=== PATIENT | male | born 1950 | race Caucasian/White ===

== ENCOUNTER 2017-02-12 14:39 | Day surgery (SDC) | payer MEDICARE ==
[~2017-02-12] VITALS: Ht 172.7 cm; Wt 110.7 kg
[~2017-02-12 14:39] MED LIST: ASPI-586 PO; FISH OIL OMEGA1 EAC1 PO; FISH1CAP15 PO; HYDR-3730 PO; HYDR-707 PO; LISI1TAB6 PO; LISI1TAB8 PO; LOVA10TA PO; LOVA20TA2 PO; METO-270 PO; SIMV20TA3 PO
[2017-02-12 14:56] LABS: BASOPHILS % (AUTO) 0 % (0-10); EOSINOPHILS # (AUTO) 0.1 10^3/uL (0.0-0.3); EOSINOPHILS % (AUTO) 1 % (0-10); LYMPHOCYTES # (AUTO) 3.3 X 10^3 (1.0-4.0); LYMPHOCYTES % (AUTO) 31 % (12-44); MEAN CORPUSCULAR HEMOGLOBIN 32 PG (25-34); MEAN CORPUSCULAR HGB CONC 35 G/DL (32-36); MEAN CORPUSCULAR VOLUME 91 FL (80-99); MEAN PLATELET VOLUME 10.2 FL (7.4-10.4); MONOCYTES # (AUTO) 0.7 X 10^3 (0.0-1.0); MONOCYTES % (AUTO) 6 % (0-12); NEUTROPHILS # (AUTO) 6.5 X 10^3 (1.8-7.8); NEUTROPHILS % (AUTO) 61 % (42-75); PLATELET COUNT 293 10^3/uL (130-400); RED BLOOD COUNT 4.94 10^6/uL (4.35-5.85); RED CELL DISTRIBUTION WIDTH 13.5 % (10.0-14.5); WHITE BLOOD COUNT 10.6 10^3/uL (4.3-11.0)
--- NOTE | 2017-02-12 14:58 | ED Abdominal Pain ---
General Chief Complaint: Abdominal/GI Problems Stated Complaint: LOWER RIGHT SIDE PAIN Source of Information: Patient Exam Limitations: No Limitations History of Present Illness Time Seen By Provider: 14:57 Initial Comments To ER with pain to the right lower quadrant of the abdomen. This began 2 days ago mild. Became more intense yesterday and even more intense today. No nausea or vomiting. No troubles urinating and no changes in bowel habits. He is still passing gas without difficulty. He still has specifically, still has his appendix. No fevers or chills. No history of this. Timing/Duration: 2-3 Days Severity/Quality: Moderate Location: RLQ Radiation: No Radiation Activities at Onset: None Associated Symptoms: No Fever/Chills, No Nausea/Vomiting Allergies and Home Medications Allergies Coded Allergies: Penicillins (Unverified Allergy, Unknown, 09/24/10) Home Medications Aspirin 81 Mg Tablet.dr, 81 MG PO DAILY, (Reported) Hydrocodone/Acetaminophen 1 Each Tablet, 1-2 EACH PO Q6H, #35 Prescribed by: SARAH JOSÉ on 01/11/16 1053 Lisinopril/Hydrochlorothiazide 1 Each Tablet, 1 EACH PO DAILY, (Reported) Lovastatin 20 Mg Tablet, 20 MG PO HS, (Reported) Metoprolol Succinate 25 Mg Tab.er.24h, 25 MG PO DAILY, (Reported) [place]-3/Dha/Epa/Fish Oil 1 Each Capsule.dr, 1 EACH PO HS, (Reported) Review of Systems Constitutional: see HPI EENTM: No Symptoms Reported Respiratory: No Symptoms Reported Cardiovascular: No Symptoms Reported Gastrointestinal: See HPI, Abdominal Pain, Denies Constipated, Denies Diarrhea , Denies Nausea Genitourinary: No Symptoms Reported Musculoskeletal: no symptoms reported Skin: no symptoms reported Psychiatric/Neurological: No Symptoms Reported Endocrine: No Symptoms Reported Hematologic/Lymphatic: No Symptoms Reported Past Csbyjes-Volsfa-Lksfyb Hx Patient Social History Former Smoker/When Quit: Jan 11, 1987 Recent Foreign Travel: No Contact w/Someone Who Travel: No Immunizations Up To Date Date of Pneumonia Vaccine: Sep 13, 2013 Surgeries HX Surgeries: Yes (right rotator cuff, umb hernia, bilat hip and knee replacement) Respiratory Hx Respiratory Disorders: No Cardiovascular Hx Cardiac Disorders: Yes Neurological Hx Neurological Disorders: Yes (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) Reproductive System Hx Reproductive Disorders: No Sexually Transmitted Disease: No Genitourinary Hx Genitourinary Disorders: No Gastrointestinal Hx Gastrointestinal Disorders: No Musculoskeletal Hx Musculoskeletal Disorders: Yes (AVASCULAR Necorosis of hip) Musculoskeletal Disorders: Arthritis Endocrine Hx Endocrine Disorders: No HEENT HX ENT Disorders: Yes Loss of Vision: Right Cancer Hx Cancer: No Psychosocial Hx Psychiatric Problems: No Integumentary HX Skin/Integumentary Disorder: No Blood Transfusions Hx Blood Disorders: No Physical Exam Vital Signs VS - Last 72 Hours, by Label 02/12/17 14:40 Temp 97.5 Pulse 72 Resp 18 B/P (MAP) 136/60 Pulse Ox 96 Capillary Refill : General Appearance: WD/WN, no apparent distress HEENT: PERRL/EOMI, normal ENT inspection Neck: non-tender, full range of motion Respiratory: normal breath sounds, no respiratory distress, no accessory muscle use Cardiovascular: regular rate, rhythm, no murmur Gastrointestinal: normal bowel sounds, soft, tenderness (right lower quadrant) Extremities: normal range of motion, non-tender Neurologic/Psychiatric: alert, normal mood/affect, oriented x 3 Skin: normal color, warm/dry Progress/Results/Core Measures Results/Orders Lab Results Laboratory Tests Test 02/12/17 14:45 Range/Units White Blood Count 10.6 4.3-11.0 10^3/uL Red Blood Count 4.94 4.35-5.85 10^6/uL Hemoglobin 15.6 13.3-17.7 G/DL Hematocrit 45 40-54 % Mean Corpuscular Volume 91 80-99 FL Mean Corpuscular Hemoglobin 32 25-34 PG Mean Corpuscular Hemoglobin Concent 35 32-36 G/DL Red Cell Distribution Width 13.5 10.0-14.5 % Platelet Count 293 130-400 10^3/uL Mean Platelet Volume 10.2 7.4-10.4 FL Neutrophils (%) (Auto) 61 42-75 % Lymphocytes (%) (Auto) 31 12-44 % Monocytes (%) (Auto) 6 0-12 % Eosinophils (%) (Auto) 1 0-10 % Basophils (%) (Auto) 0 0-10 % Neutrophils # (Auto) 6.5 1.8-7.8 X 10^3 Lymphocytes # (Auto) 3.3 1.0-4.0 X 10^3 Monocytes # (Auto) 0.7 0.0-1.0 X 10^3 Eosinophils # (Auto) 0.1 0.0-0.3 10^3/uL Basophils # (Auto) 0.0 0.0-0.1 10^3/uL Sodium Level 138 135-145 MMOL/L Potassium Level 3.8 3.6-5.0 MMOL/L Chloride Level 103 98-107 MMOL/L Carbon Dioxide Level 28 21-32 MMOL/L Anion Gap 7 5-14 MMOL/L Blood Urea Nitrogen 13 7-18 MG/DL Creatinine 0.81 0.60-1.30 MG/DL Estimat Glomerular Filtration Rate > 60 BUN/Creatinine Ratio 16 Glucose Level 176 H 70-105 MG/DL Calcium Level 9.6 8.5-10.1 MG/DL Total Bilirubin 1.0 0.1-1.0 MG/DL Aspartate Amino Transf (AST/SGOT) 18 5-34 U/L Alanine Aminotransferase (ALT/SGPT) 22 0-55 U/L Alkaline Phosphatase 89 40-136 U/L Total Protein 7.2 6.4-8.2 G/DL Albumin 4.2 3.2-4.5 G/DL My Orders Orders - TAMEKA ROBERTS APRN Cbc With Automated Diff (02/12/17 14:51) Comprehensive Metabolic Panel (02/12/17 14:51) Ua Culture If Indicated (02/12/17 14:51) Saline Lock/Iv-Start (02/12/17 14:51) Ct Abd/Pelv W (Appendicitis) (02/12/17 14:51) Iohexol Injection (Omnipaque 350 Mg/Ml 1 (02/12/17 15:15) Sodium Chloride Flush (Catheter Flush Sy (02/12/17 15:15) Ns (Ivpb) (Sodium Chloride 0.9% Ivpb Bag (02/12/17 15:15) Ketorolac Injection (Toradol Injection) (02/12/17 16:00) Medications Given in ED Current Medications Medications Dose Ordered Sig/Anthony Route Start Time Stop Time Status Last Admin Dose Admin Iohexol 100 ml ONCE ONCE IV 02/12/17 15:15 02/12/17 15:17 DC 02/12/17 15:31 100 ML Ketorolac Tromethamine 30 mg ONCE ONCE IVP 02/12/17 16:00 02/12/17 16:01 02/12/17 15:51 30 MG Sodium Chloride 10 ml NEEDED PRN IV 02/12/17 15:15 02/12/17 15:31 10 ML Sodium Chloride 100 ml ONCE ONCE IV 02/12/17 15:15 02/12/17 15:17 DC 02/12/17 15:31 80 ML Vital Signs/I&O Vital Sign - Last 12Hours 02/12/17 14:40 Temp 97.5 Pulse 72 Resp 18 B/P (MAP) 136/60 Pulse Ox 96 Diagnostic Imaging Diagonstic Imaging: CT Comments NAME: KATIANA PETERS REC#: [id number] PT STATUS: REG ER : 1950 PHYSICIAN: TAMEKA ROBERTS APRN ADMIT DATE: 02/12/17/ER Draft Date of Exam:02/12/17 CT ABD/PELV W (APPENDICITIS) PROCEDURE: CT abdomen and pelvis with contrast, rule out appendicitis. TECHNIQUE: Multiple contiguous axial images were obtained through the abdomen and pelvis after the administration of intravenous contrast. INDICATION: Right lower quadrant pain. History of hernia repairs. 100 mL of Omnipaque 350 is administered intravenously. FINDINGS: The lung bases demonstrate no significant abnormality. The liver, the gallbladder, the pancreas, and the adrenal glands appear unremarkable. The kidneys have symmetric enhancement and contrast excretion. There is no hydronephrosis. The abdominal aorta is normal in caliber. No periaortic significantly enlarged lymph node is seen. There is no bowel obstruction. The appendix is dilated with mild surrounding fatty stranding concerning for early acute appendicitis. No abscess or evidence of perforation. No significant free fluid or fluid collection of the abdomen or pelvis is seen. The pelvis demonstrate beam hardening artifacts from bilateral hip replacements. There is diastases of the recti and wide neck small periumbilical hernia. The osseous structures demonstrate fused SI joints and degenerative changes in the lumbar spine. IMPRESSION: Findings concerning for early appendicitis. Findings discussed with VIRIDIANA Pierson, at time of dictation. Dictated on workstation # [id number] Dict: 02/12/17 1548 Trans: 02/12/17 1606 [id number] Interpreted by: JEAN-PAUL GAYLE MD Electronically signed by: Departure Communication Time/Spoke to Admitting Phy: 15:59 Communication I did discuss the case with Dr. José. He recommends admit, nothing by mouth, pain and nausea medication and tentative plan for laparoscopic appendectomy tomorrow morning. The patient did eat a bowl of Ramen noodles at about 2 p.m. Impression Impression: Primary Impression: Acute appendicitis Qualified Codes: K35.3 - Acute appendicitis with localized peritonitis Disposition: ADMITTED INPATIENT Condition: Stable Decision to Admit Reason: Admit from ER (General) Decision to Admit/Date: Feb 12, 2017 Time/Decision to Admit Time: 15:53 Departure-Patient Inst. Referrals: [facility] (PCP/Family) Primary Care Physician TAMEKA ROBERTS APRN Feb 12, 2017 14:58
[2017-02-12] MEDS ORDERED: CATHETER FLUSH 10 ML SYR IV PRN ×2 (15:15→16:45)
[2017-02-12] MEDS ORDERED: NS 100 ML (IVPB) BAG IV ONE (15:15)
[2017-02-12] MEDS ORDERED: IOHEXOL 350 MG/ML 100 ML (OMNIPAQUE 350) VIAL IV ONE (15:15)
[2017-02-12 15:16] LABS: ALANINE AMINOTRANSFERASE 22 U/L (0-55); ALBUMIN 4.2 G/DL (3.2-4.5); ANION GAP 7 MMOL/L (5-14); ASPARTATE AMINO TRANSFERASE 18 U/L (5-34); BLOOD UREA NITROGEN 13 MG/DL (7-18); BUN/CREATININE RATIO 16; CALCIUM 9.6 MG/DL (8.5-10.1); CARBON DIOXIDE 28 MMOL/L (21-32); CHLORIDE 103 MMOL/L (98-107); CREATININE SERUM 0.81 MG/DL (0.60-1.30); GFR ESTIMATED > 60; GLUCOSE 176 MG/DL (70-105); POTASSIUM 3.8 MMOL/L (3.6-5.0); SODIUM 138 MMOL/L (135-145); TOTAL PROTEIN 7.2 G/DL (6.4-8.2)
[2017-02-12] MEDS ORDERED: KETOROLAC 30 MG/ML VIAL IVP ONE (16:00)
--- NOTE | 2017-02-12 16:06 | Diagnostic Imaging Report ---
PROCEDURE: CT abdomen and pelvis with contrast, rule out appendicitis. TECHNIQUE: Multiple contiguous axial images were obtained through the abdomen and pelvis after the administration of intravenous contrast. INDICATION: Right lower quadrant pain. History of hernia repairs. 100 mL of Omnipaque 350 is administered intravenously. FINDINGS: The lung bases demonstrate no significant abnormality. The liver, the gallbladder, the pancreas, and the adrenal glands appear unremarkable. The kidneys have symmetric enhancement and contrast excretion. There is no hydronephrosis. The abdominal aorta is normal in caliber. No periaortic significantly enlarged lymph node is seen. There is no bowel obstruction. The appendix is dilated with mild surrounding fatty stranding concerning for early acute appendicitis. No abscess or evidence of perforation. No significant free fluid or fluid collection of the abdomen or pelvis is seen. The pelvis demonstrate beam hardening artifacts from bilateral hip replacements. There is diastases of the recti and wide neck small periumbilical hernia. The osseous structures demonstrate fused SI joints and degenerative changes in the lumbar spine. IMPRESSION: Findings concerning for early appendicitis. Findings discussed with VIRIDIANA Pierson, at time of dictation. Dictated by: Dictated on workstation # [id number]
[2017-02-12 16:35] VITALS: BP 142/69
[2017-02-12] MEDS ORDERED: NS IV 1000 ML 1,000 ML ONE (16:40)
[2017-02-12] MEDS ORDERED: fentaNYL INJECTION 100 MCG/2 ML AMP IV PRN (17:00)
[2017-02-12] MEDS ORDERED: ONDANSETRON 4 MG/2 ML (SDV) Z0FRAN IV PRN (17:00)
[2017-02-12] MEDS ORDERED: FLUT16SP22 NSEACH (17:04)
[2017-02-12] MEDS ORDERED: OMEG-160 PO (17:04)
[2017-02-12] MEDS ORDERED: LISI1TAB10 PO (17:04)
[2017-02-12] MEDS ORDERED: LORA10TA7 PO (17:05)
[2017-02-12] MEDS: NS IV 1000 ML 1,000 ML IV SCH (17:26)
[2017-02-12] MEDS: CIPROFLOXACIN 400 MG/D5W 200 ML (PRE-MIX) IV SCH (17:26)
[2017-02-12] MEDS: metroNIDAZOLE 500 MG/100 ML IVPB (PRE-MIX) IV SCH (17:26)
[2017-02-12] MEDS ORDERED: FLU TRIvalent (5 YOA+) 2016-17 (AFLURIA) 0.5 ML IM ONE (17:30)
[2017-02-12] MEDS: HYDROcodone/APAP 7.5 MG/325 MG (LORTAB, LORCET PLUS) TABLET PO PRN (18:08)
[2017-02-12 20:00] VITALS: BP 148/73
[2017-02-12 20:28] LABS: BILIRUBIN,URINE NEGATIVE (NEGATIVE); KETONES,URINE NEGATIVE (NEGATIVE); LEUKOCYTE ESTERASE ,URINE NEGATIVE (NEGATIVE); NITRITE,URINE NEGATIVE (NEGATIVE); PH,URINE 5 (5-9); PROTEIN,URINE 1+ (NEGATIVE); UROBILINOGEN,URINE NORMAL (NORMAL)
[2017-02-12 20:39] LABS: WBC,URINE 0-2 /HPF
[2017-02-13] VITALS: BP 121/63
[2017-02-13] MEDS: NS IV 1000 ML 1,000 ML IV SCH ×3 (00:45→16:57)
[2017-02-13] MEDS: metroNIDAZOLE 500 MG/100 ML IVPB (PRE-MIX) IV SCH ×3 (00:48→18:51)
[2017-02-13 03:46] VITALS: BP 121/57
[2017-02-13] MEDS: CIPROFLOXACIN 400 MG/D5W 200 ML (PRE-MIX) IV SCH ×2 (05:44→16:53)
[2017-02-13 05:56] LABS: BASOPHILS % (AUTO) 0 % (0-10); EOSINOPHILS # (AUTO) 0.2 10^3/uL (0.0-0.3); EOSINOPHILS % (AUTO) 2 % (0-10); LYMPHOCYTES # (AUTO) 2.1 X 10^3 (1.0-4.0); LYMPHOCYTES % (AUTO) 26 % (12-44); MEAN CORPUSCULAR HEMOGLOBIN 32 PG (25-34); MEAN CORPUSCULAR HGB CONC 35 G/DL (32-36); MEAN CORPUSCULAR VOLUME 91 FL (80-99); MEAN PLATELET VOLUME 10.1 FL (7.4-10.4); MONOCYTES # (AUTO) 0.8 X 10^3 (0.0-1.0); MONOCYTES % (AUTO) 10 % (0-12); NEUTROPHILS # (AUTO) 4.8 X 10^3 (1.8-7.8); NEUTROPHILS % (AUTO) 61 % (42-75); PLATELET COUNT 256 10^3/uL (130-400); RED BLOOD COUNT 4.63 10^6/uL (4.35-5.85); RED CELL DISTRIBUTION WIDTH 13.4 % (10.0-14.5); WHITE BLOOD COUNT 7.9 10^3/uL (4.3-11.0)
--- NOTE | 2017-02-13 08:01 | HISTORY AND PHYSICAL ---
DATE OF ADMISSION: 02/12/2017 ATTENDING PRIMARY ENVIRONMENTAL SERVICES TECH: [facility]. Mr. Mike Vaughan is a 67-year-old male who presented to [facility] emergency department today with persistent and worsening pain in the right lower abdominal quadrant. He reports that this began approximately 2 days ago and was mild. He reports that this did worsen today. He does not report any nausea nor vomiting as well as no change in bowel habits. He also does not report any fever or nor chills. Labs were drawn which were essentially normal. A CT scan was performed, which did show a dilated appendix to the upper limits of normal of approximately 10 mm and was consistent with an early appendicitis. He did lunch today and does also have a full stomach on CT scan. PAST MEDICAL HISTORY: 1. Hypertension. 2. Hypercholesterolemia. 3. Degenerative joint disease. 4. Avascular necrosis of the hips. 5. History of stroke. PAST SURGERIES: 1. Right rotator cuff repair. 2. Umbilical hernia repair. 3. Bilateral total knee arthroplasty. ALLERGIES: Penicillin. MEDICATIONS: 1. Aspirin 81 mg daily. 2. Lisinopril/hydrochlorothiazide daily. 3. Lovastatin 20 mg daily. 4. Metoprolol 25 mg daily. 5. [place]-3 fish oil daily. SOCIAL HISTORY: Previous smoke, quit 1986. Negative alcohol. FAMILY HISTORY: Noncontributory. VITAL SIGNS: Temperature 97.5, blood pressure 136/60, pulse 72, respirations 18, pulse oximetry 96% on room air. REVIEW OF SYSTEMS: This is a well-nourished male, currently in no acute distress. He is not experiencing shortness of breath nor difficulty breathing. No chest pain, palpitations, or diaphoresis. No nausea or vomiting. No diarrhea or constipation. No fever or chills. No recent inadvertent with weight loss. PHYSICAL EXAMINATION: CHEST: Clear. HEART: Regular. EXTREMITIES: No lower extremity edema. Negative Alyssa sign. HEENT: No scleral icterus. No cervical lymphadenopathy. ABDOMEN: Soft, nondistended. There is discomfort in the right lower abdominal quadrant with voluntary guarding. No rebound and no peritoneal signs. LABS: WBC 10.6, hemoglobin 15.6, hematocrit 45, platelets 293, BUN 13, creatinine 0.81. ASSESSMENT AND PLAN: This is a 67-year-old male with early acute appendicitis. We will admit him start him and start him on IV fluids, as well as IV antibiotics. We will also make him n.p.o. after midnight and proceed with a diagnostic laparoscopy and laparoscopic appendectomy in the morning. Job ID: [id number] Dictated Date: 02/12/2017 17:58:42 Office Machinery Or Equipment Installer Date: 02/13/2017 07:53:13/naseem
[2017-02-13 08:15] VITALS: BP 164/74
--- NOTE | 2017-02-13 08:31 | Progress Note-Pre Operative ---
Pre-Operative Progress Note H&P Reviewed The H&P was reviewed, patient examined and no changes noted. Date H&P Reviewed: Feb 13, 2017 Time H&P Reviewed: 08:30 Pre-Operative Diagnosis: acute appendicitis SARAH LARA MD Feb 13, 2017 08:31
[2017-02-13] MEDS ORDERED: PANTOPRAZOLE 40 MG/10 ML (PROTONIX) VIAL IV SCH (09:00)
[2017-02-13] MEDS ORDERED: FAMOTIDINE 20MG/2ML IV (PEPCID) IV ONE (10:45)
[2017-02-13 12:00] VITALS: BP 145/65
[2017-02-13] MEDS ORDERED: LIDOCAINE PF 2% 10 ML (XYLOCAINE) AMP ONE (12:29)
[2017-02-13] MEDS ORDERED: proPOfol 200 MG/20 ML (DIPRIVAN) VIAL IV ONE (12:29)
[2017-02-13] MEDS ORDERED: fentaNYL INJECTION 100 MCG/2 ML AMP ONE ×2 (12:29→14:23)
[2017-02-13] MEDS ORDERED: ONDANSETRON 4 MG/2 ML (SDV) Z0FRAN ONE (12:29)
[2017-02-13] MEDS ORDERED: SEVOFLURANE (ULTANE) 15 ML INHAL SOLN ONE ×2 (12:29→14:47)
[2017-02-13] MEDS ORDERED: ROCURONIUM 50 MG/5 ML (ZEMURON) VIAL IV ONE (12:29)
[2017-02-13] MEDS ORDERED: LACTATED RINGERS 1,000 ML IV ONE ×2 (12:29→14:36)
[2017-02-13] MEDS ORDERED: MIDAZOLAM 2 MG/2 ML (VERSED) VIAL ONE (12:30)
[2017-02-13] MEDS ORDERED: BUP/EPI 0.5% 1:200,000 (SENSORCAINE) 30 ML VIAL ONE (12:46)
[2017-02-13] MEDS: LACTATED RINGERS 1,000 ML IV PRN ×2 (13:05→14:25)
[2017-02-13] MEDS ORDERED: ceFAZolin 1,000 MG (ANCEF) VIAL ONE (14:14)
[2017-02-13] MEDS ORDERED: fentaNYL INJECTION 100 MCG/2 ML AMP IV PRN (14:30)
[2017-02-13] MEDS ORDERED: ONDANSETRON 4 MG/2 ML (SDV) Z0FRAN IV ONE (14:30)
[2017-02-13] MEDS ORDERED: ceFAZolin INJECTION 1,000 MG in NS (IVPB) 50 ML IV ONE (14:30)
[2017-02-13] MEDS ORDERED: ESMOLOL 100 MG/10 ML (BREVIBLOC) VIAL ONE (14:43)
--- NOTE | 2017-02-13 14:57 | Progress Note-Post Operative ---
Post-Operative Progess Note Perennial House Manager manjit small INFANTRY OFFICER Pre-Operative Diagnosis acute appendicitis Post-Operative Diagnosis same Post-Op Procedure Note Date of Procedure: Feb 13, 2017 Name of Procedure: laparoscopic appendectomy Anesthesia Type GET Estimated blood loss (mL): minimal Specimen(s) collected appendix SARAH LARA MD Feb 13, 2017 2:57 pm
[2017-02-13] MEDS ORDERED: CIPR500T21 PO (15:03)
[2017-02-13] MEDS ORDERED: HYDR-3730 PO (15:03)
[2017-02-13] MEDS ORDERED: GLYCOPYRROLATE 0.2 MG/ML (ROBINUL) 2 ML VIAL ONE (15:04)
[2017-02-13] MEDS ORDERED: NEOSTIGMINE (BLOXIVERZ ) 1 MG/1ML 10 ML VIAL ONE (15:04)
--- NOTE | 2017-02-13 15:04 | Discharge Inst-Surgical ---
D/C Lap Instructions-MARCO New, Converted, or Re-Newed RX: RX on Chart Follow Up Appt in 2 weeks Activity as tolerated No driving for 24 hours No driving while on pain medications Incentive Spirometry use every 2 hours while awake Regular Diet Symptoms to Report: Fever over 101 degree F, Nausea/Vomiting Infection Signs and Symptoms to report: Increased redness, Foul odor of wound, Increased drainage Bathing instructions: May shower Operative Area Clean/Dry; Keep incision clean/dry If any problems/questions: Contact your physician or go to Emergency Room SARAH LARA MD Feb 13, 2017 3:03 pm
[2017-02-13] MEDS ORDERED: OMEG-160 PO (15:07)
[2017-02-13] MEDS ORDERED: LISI1TAB10 PO (15:07)
[2017-02-13] MEDS ORDERED: LOVA20TA2 PO (15:07)
[2017-02-13] MEDS ORDERED: FLUT16SP22 NSEACH (15:07)
[2017-02-13] MEDS ORDERED: LORA10TA7 PO (15:07)
[2017-02-13] MEDS ORDERED: METO-270 PO (15:07)
[2017-02-13] MEDS ORDERED: ASPI-586 PO (15:07)
[2017-02-13] MEDS ORDERED: morphine INJ 10 MG/ML 1ML (SYR OR VIAL) ONE (15:41)
[2017-02-13] MEDS: morphine INJ 10 MG/ML 1ML (SYR OR VIAL) IV PRN ×2 (15:45→15:50)
[2017-02-13 16:36] VITALS: BP 144/79
[2017-02-13 20:00] VITALS: BP 142/78
[2017-02-14] VITALS: BP 131/69
[2017-02-14] MEDS: NS IV 1000 ML 1,000 ML IV SCH ×2 (00:45→05:49)
[2017-02-14] MEDS: metroNIDAZOLE 500 MG/100 ML IVPB (PRE-MIX) IV SCH (01:46)
[2017-02-14 04:00] VITALS: BP 133/77
[2017-02-14] MEDS: HYDROcodone/APAP 7.5 MG/325 MG (LORTAB, LORCET PLUS) TABLET PO PRN (04:23)
[2017-02-14] MEDS: CIPROFLOXACIN 400 MG/D5W 200 ML (PRE-MIX) IV SCH (05:48)
--- NOTE | 2017-02-14 08:11 | OPERATIVE REPORT ---
PROCEDURE PHYSICIAN: SARAH LARA DATE OF PROCEDURE: 02/12/2017 ATTENDING PRIMARY CARE PHYSICIAN: [facility]. PREOPERATIVE DIAGNOSIS: Acute appendicitis. POSTOPERATIVE DIAGNOSIS: Acute appendicitis. PROCEDURE: Laparoscopic appendectomy. SURGEON: Dr. Lara. PROCESS HELPER: Lake Ernst APRN. ANESTHESIA: General endotracheal. ESTIMATED BLOOD LOSS: Minimal. FINDINGS: Inflamed appendix, no perforation. DISPOSITION: The patient tolerated the procedure well. Mr. Mike Vaughan is a 67-year-old male known to us. He presented to [facility] Emergency Department with right lower quadrant abdominal pain for the past 2 days, which was initially mild. However, did worsen. He does not report any nausea or vomiting as well as no change in bowel habits, as well as no fever or nor chills. Labs were drawn which were essentially normal. A CT scan was performed, which did show a dilated appendix along the upper limits of normal, approximately 10 mm consistent with an early acute appendicitis. He did have lunch and did have a full stomach on CT scan. We have seen this gentleman before and underwent an open umbilical hernia repair with mesh approximately one year ago. PROCEDURE: The patient was brought to the operating room and laid supine on the table. After adequate IV pain and sedative medications, and general endotracheal intubation the abdomen was prepped and draped in standard surgical fashion. 0.5% Marcaine with epinephrine was used to anesthetize the overlying skin in the left upper abdominal quadrant. A small skin incision made using a 15 blade. An 0 silk suture was applied to the medial aspect of the incision for retraction. A Veress needle inserted with a low opening pressure of 0 mmHg. The abdomen was insufflated to 15 mmHg pressure. The Veress needle removed and a 5 mm Xcel trocar placed followed by a 5 mm, 45 degree angle laparoscope, visualizing the peritoneal cavity. A four-quadrant abdominal exploration was performed. There were omental adhesions to the previous umbilical hernia repair. The appendix was inflamed however, no perforation. Under direct visualization, we then proceeded to place a supraumbilical 10 mm port under direct visualization after the skin and peritoneum were anesthetized using 0.5% Marcaine with epinephrine and a transverse incision made using a 15 blade. In a similar manner, a suprapubic 5 mm port was placed. The appendix was tented toward the anterior abdominal wall. A window was then created between the mesoappendix and the base of the appendix at the cecum with a [place] dissector. The appendix was then stapled and transected at its cecal base using a TERESITA 2.5 mm thickness stapler. The mesoappendix was then stapled and transected with the same stapler with a 2 mm thickness reload. Good hemostasis was observed. The appendix was removed through the 10 mm port site using an Endo Catch bag. The area was then copiously irrigated and suctioned out. The 10 mm port site, fascia and peritoneum were then closed under direct visualization using a Kai-Mick device and 0 Vicryl suture. Abdomen was desufflated and the remaining ports removed. All skin incisions were closed using 4-0 Monocryl running subcuticular suture. The wounds were then cleaned and covered Dermabond. The patient tolerated the procedure well. We will start IV and oral pain medication as well as a diet. Once he is tolerating a diet and has good pain control with oral pain medication and has stable vital signs, and is afebrile, we will discharge him home. Job ID: [id number] Dictated Date: 02/13/2017 15:11:48 Business Management Intern Date: 02/14/2017 08:02:18 / harman
[2017-02-14 08:41] VITALS: BP 137/69
[2017-02-14 09:30] VITALS: BP 137/69
--- NOTE | 2017-02-14 14:35 | Anesthesia-General Post-Op ---
General Patient Condition Mental Status/LOC: Same as Preop Cardiovascular: Satisfactory Nausea/Vomiting: Absent Respiratory: Satisfactory Pain: Controlled Complications: Absent Post Op Complications Complications None Follow Up Care/Instructions Patient Instructions None needed. Anesthesia/Patient Condition Patient Condition Patient is doing well, no complaints, stable vital signs, no apparent adverse anesthesia problems. No complications reported per nursing. D/C home per [facility] Criteria: Yes KILO SCOTT DO Feb 14, 2017 14:35
--- OUTSIDE RECORDS SUMMARY | 2017-02-16 05:09 | XMS REPORT ---
Author Author ARLENE ULRICH [facility] eClinicalWorks Address Unknown Phone Unavailable Care Team Providers Care Instructor [employer] Name Role Phone ARLENE ULRICH CP Unavailable Allergies, Adverse Reactions, Alerts Substance Reaction Event Type penicillin Info Not Available Non Drug Allergy Problems Problem Type Condition Code Onset Dates Condition Status Assessment History of long-term use of multiple prescription drugs Z92.29 Active Problem Unspecified cerebral artery occlusion without mention of cerebral infarction 434.90 Active Assessment Essential hypertension I10 Active Problem History of long-term use of multiple prescription drugs Z92.29 Active Problem Hyperlipidemia 272.4 Active Problem Essential hypertension I10 Active Problem Family history of diabetes mellitus V18.0 Active Problem Legal blindness, 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 Active Problem Hypertriglyceridemia 272.1 Active Problem Family history of unspecified malignant neoplasm V16.9 Active Medications Medication Code System Code Instructions Start Date End Date Status Dosage Toprol XL [facility] [address]-28 25 MG Orally Once a day Jul 28, 2015 1 tablet Lisinopril-Hydrochlorothiazide [facility] [address]-70 10-12.5 MG Orally Once a day 1 tablet Lovastatin [facility] [address]-47 10 MG Orally Once a day 1 tablet at night Aspir-81 [facility] [address]-66 81 MG Orally Once a day 1 tablet Fish Oil [facility] [address]-99 1000 MG Orally Once a day 1 capsule Procedures Procedure Coding System Code Date [facility] VISIT ESTABLISHED PATIENT CPT-4 G0467 Sep 26, 2015 Office Visit, Est Pt., Level 3 CPT-4 63635 Sep 26, 2015 [facility] CPT-4 NOBLL Sep 26, 2015 VENIPUNCT, ROUTINE* CPT-4 84163 Sep 26, 2015 Vital Signs Date/Time: Sep 26, 2015 Temperature 98.0 F Weight 251.0 lbs Height 68 in BMI 38.16 Index Blood Pressure Diastolic 88 mmHg Blood Pressure Systolic 136 mmHg Cardiac Monitoring Heart Rate 80 bpm Results Name Result Date Reference Range Unit Abnormality Flag ROUTINE VENIPUNCTURE Summary Purpose eClinicalWorks Submission
--- OUTSIDE RECORDS SUMMARY | 2017-02-16 05:09 | XMS REPORT ---
Author Author ARLENE ULRICH Organization eClinicalWorks Address Unknown Phone Unavailable Care Team Providers Care Turkish Line Attendant Name Role Phone ARLENE ULRICH CP Unavailable Allergies No Known Allergies Problems Problem Type Condition Code Onset Dates Condition Status Assessment Abnormal chest xray R93.8 Active Problem Mixed hyperlipidemia E78.2 Active Problem Other seasonal allergic rhinitis J30.2 Active Problem Abnormal chest xray R93.8 Active Problem Essential hypertension I10 Active Problem History of long-term use of multiple prescription drugs Z92.29 Active Problem Visual changes H53.9 Active Problem Umbilical hernia without obstruction and without gangrene K42.9 Active Medications No Known Medications Results No Known Results Summary Purpose eClinicalWorks Submission
--- OUTSIDE RECORDS SUMMARY | 2017-02-16 05:09 | XMS REPORT ---
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 Active Problem Unspecified cerebral artery occlusion without mention of cerebral infarction 434.90 Active Problem Family history of unspecified malignant neoplasm V16.9 Active Problem Family history of diabetes mellitus V18.0 Active Medications Medication Code System Code Instructions Start Date End Date Status Dosage Lisinopril-Hydrochlorothiazide [facility] [address]-70 10-12.5 MG Orally Once a day 1 tablet Lovastatin [facility] [address]-25 10 MG Orally Once a day 1 tablet at night Results No Known Results Summary Purpose eClinicalWorks Submission
--- OUTSIDE RECORDS SUMMARY | 2017-02-16 05:09 | XMS REPORT ---
Author ARLENE More [facility] eClinicalWorks Address Unknown Phone Unavailable Care Team Providers Care Hotel Office Manager Name Role Phone ARLENE ULRICH Unavailable Allergies, Adverse Reactions, Alerts Substance Reaction Event Type penicillin Info Not Available Non Drug Allergy Problems Problem Type Condition Code Onset Dates Condition Status Assessment Essential hypertension I10 Active Problem Hepatic steatosis K76.0 Active Assessment Other seasonal allergic rhinitis J30.2 Active Assessment Umbilical hernia without obstruction and without gangrene K42.9 Active Assessment Mixed hyperlipidemia E78.2 Active Problem Mixed hyperlipidemia E78.2 Active Problem Other seasonal allergic rhinitis J30.2 Active Problem Abnormal chest xray R93.8 Active Problem Essential hypertension I10 Active Problem History of long-term use of multiple prescription drugs Z92.29 Active Problem Visual changes H53.9 Active Problem Umbilical hernia without obstruction and without gangrene K42.9 Active Medications Medication Code System Code Instructions Start Date End Date Status Dosage Fish Oil [facility] [address]-26 1000 MG Orally Once a day 1 capsule Lisinopril-Hydrochlorothiazide [facility] [address]-20 20-25 MG Orally Once a day 1 tablet Fluticasone Propionate [facility] [address]-85 50 MCG/ACT Nasally Once a day 1 spray in each nostril Lovastatin [facility] [address]-21 20 mg Orally Once a day 1 tablet at night ZyrTEC [facility] 0 10 MG Orally Once a day Oct 02, 2016 1 tablet Allergy Relief [facility] [address]-93 not defined Aspir-81 [facility] [address]-48 81 MG Orally Once a day 1 tablet Metoprolol Succinate ER [facility] [address]-57 25 MG Orally Once a day 1 tablet Procedures Procedure Coding System Code Date [facility] VISIT ESTABLISHED PATIENT CPT-4 G0467 Oct 02, 2016 Office Visit, Est Pt., Level 4 CPT-4 28547 Oct 02, 2016 LAB NOT BILLED BY [facility] CPT-4 NOBLL Oct 02, 2016 Vital Signs Date/Time: Oct 02, 2016 Cardiac Monitoring Heart Rate 77 bpm Weight 263.1 lbs Height 68 in BMI 40.00 Index Blood Pressure Diastolic 77 mmHg Blood Pressure Systolic 129 mmHg Results No Known Results Summary Purpose eClinicalWorks Submission
--- OUTSIDE RECORDS SUMMARY | 2017-02-16 05:09 | XMS REPORT ---
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 Active Assessment Umbilical hernia without obstruction and without gangrene K42.9 Active Assessment Visual changes H53.9 Active Problem Umbilical hernia without obstruction and without gangrene K42.9 Active Problem Essential hypertension I10 Active Problem Visual changes H53.9 Active Problem Hypertriglyceridemia 272.1 Active Problem Family history of unspecified malignant neoplasm V16.9 Active Problem History of long-term use of multiple prescription drugs Z92.29 Active Problem Hyperlipidemia 272.4 Active Medications Medication Code System Code Instructions Start Date End Date Status Dosage Fish Oil [facility][NOTE 3] [address]-10 1000 MG Orally Once a day 1 capsule Toprol XL [facility][NOTE 3] [address]-72 25 MG Orally Once a day Jul 28, 2015 1 tablet Lovastatin [facility][NOTE 3] [address]-62 10 MG Orally Once a day 1 tablet at night Lisinopril-Hydrochlorothiazide [facility][NOTE 3] [address]-84 10-12.5 MG Orally Once a day 1 tablet Aspir-81 [facility][NOTE 3] [address]-28 81 MG Orally Once a day 1 tablet Procedures Procedure Coding System Code Date Office Visit, Est Pt., Level 4 CPT-4 53254 Nov 28, 2015 [facility] VISIT ESTABLISHED PATIENT CPT-4 G0467 Nov 28, 2015 Vital Signs Date/Time: Nov 28, 2015 Temperature 97.4 F Weight 248 lbs Height 68 in BMI 37.70 Index Blood Pressure Diastolic 84 mmHg Blood Pressure Systolic 132 mmHg Cardiac Monitoring Heart Rate 88 bpm Results No Known Results Summary Purpose eClinicalWorks Submission
--- OUTSIDE RECORDS SUMMARY | 2017-02-16 05:09 | XMS REPORT ---
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 Active Problem Unspecified cerebral artery occlusion without mention of cerebral infarction 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.90 Active Problem Family history of unspecified malignant neoplasm V16.9 Active Problem Family history of diabetes mellitus V18.0 Active Medications Medication Code System Code Instructions Start Date End Date Status Dosage Lovastatin [facility] [address]-74 10 MG Orally Once a day 1 tablet at night Toprol XL [facility] [address]-67 25 MG Orally Once a day Jul 28, 2015 1 tablet Fish Oil [facility] [address]-38 1000 MG Orally Once a day 1 capsule Lisinopril-Hydrochlorothiazide [facility] [address]-15 10-12.5 MG Orally Once a day 1 tablet Procedures Procedure Coding System Code Date Office Visit, New Pt., Level 4 CPT-4 48903 Jul 28, 2015 [facility] VISIT NEW PATIENT CPT-4 G0466 Jul 28, 2015 Vital Signs Date/Time: Jul 28, 2015 Temperature 98.2 F Weight 250.7 lbs Height 68 in BMI 38.11 Index Blood Pressure Diastolic 82 mmHg Blood Pressure Systolic 162 mmHg Cardiac Monitoring Heart Rate 72 bpm Results No Known Results Summary Purpose eClinicalWorks Submission
--- OUTSIDE RECORDS SUMMARY | 2017-02-16 05:09 | XMS REPORT ---
Author Author ARLENE ULRICH [facility] eClinicalWorks Address Unknown Phone Unavailable Care Team Providers Care Manager Fine Name Role Phone ARLENE ULRICH CP Unavailable Allergies No Known Allergies Problems Problem Type Condition Code Onset Dates Condition Status Problem Other seasonal allergic rhinitis J30.2 Active Problem Visual changes H53.9 Active Problem Mixed hyperlipidemia E78.2 Active Problem History of long-term use of multiple prescription drugs Z92.29 Active Assessment Cough R05 Active Problem Umbilical hernia without obstruction and without gangrene K42.9 Active Problem Essential hypertension I10 Active Medications No Known Medications Results No Known Results Summary Purpose eClinicalWorks Submission
--- OUTSIDE RECORDS SUMMARY | 2017-02-16 05:09 | XMS REPORT | Continuity Of Care Document ---
Author Author [facility] Organization [facility] Address [address] [place] [address] Phone Care Team Providers Care Customer Marketing Manager Name Role Phone UNASSIGNED, ED PHYSICIAN Unavailable Unavailable LUCY ORTEZ DO AT Results Lab Results Visit/Account #[id number] (November 28, 2015 1:49pm - November 28, 2015 5:23pm) Test Result Date/Time POC LACTIC ACID VENOUS POC LACTIC ACID VENOUS(0.90-1.70 MMOL/L) 1.12 MMOL/L November 28, 2015 2:42pm 74520-8: COMPLETE BLOOD COUNT WITH DIFF WHITE BLOOD COUNT(4.0-11.0 10E3/UL) 7.5 10E3/UL November 28, 2015 2:15pm RED BLOOD COUNT(4.50-5.90 10E6/UL) 4.44 10E6/UL November 28, 2015 2:15pm HEMOGLOBIN(13.5-17.5 G/DL) 13.1 G/DL November 28, 2015 2:15pm HEMATOCRIT(41.0-53.0 %) 39.2 % November 28, 2015 2:15pm MEAN CORPUSCULAR VOLUME(82.0-100.0 FL) 88.3 FL November 28, 2015 2:15pm 05977-5: MEAN CORPUSCULAR HEMOGLOBIN(26.0-34.0 PG) 29.5 PG November 28, 2015 2:15pm MEAN CORPUSCULAR HGB CONC(31.5-36.5 G/DL) 33.4 G/DL November 28, 2015 2:15pm RED CELL DISTRIBUTION WIDTH(11.5-14.5 %) 13.2 % November 28, 2015 2:15pm 777-3: PLATELET COUNT(150-450 10E3/UL) 196 10E3/UL November 28, 2015 2:15pm MEAN PLATELET VOLUME(8.2-12.4 FL) 10.0 FL November 28, 2015 2:15pm 770-8: NEUTROPHILS % (AUTO)(40-70 %) 74 % November 28, 2015 2:15pm LYMPHOCYTES % (AUTO)(15-45 %) 15 % November 28, 2015 2:15pm 5905-5: MONOCYTES % (AUTO)(2-10 %) 9 % November 28, 2015 2:15pm 713-8: EOSINOPHILS % (AUTO)(0-6 %) 2 % November 28, 2015 2:15pm 706-2: BASOPHILS % (AUTO)(0-1 %) 1 % November 28, 2015 2:15pm 63361-9: IMMATURE GRANS % (AUTO)(0-0 %) 0 % November 28, 2015 2:15pm NUCLEATED RBCS (AUTO)(0-0 %) 0 % November 28, 2015 2:15pm 751-8: NEUTROPHILS # (AUTO)(2.5-7.5 10E3/UL) 5.5 10E3/UL November 28, 2015 2:15pm 05153-6: LYMPHOCYTES # (AUTO)(1.0-4.0 10E3/UL) 1.1 10E3/UL November 28, 2015 2:15pm 742-7: MONOCYTES # (AUTO)(0.2-0.8 10E3/UL) 0.6 10E3/UL November 28, 2015 2:15pm 711-2: EOSINOPHILS # (AUTO)(0.0-0.4 10E3/UL) 0.1 10E3/UL November 28, 2015 2:15pm 704-7: BASOPHILS # (AUTO)(0.0-0.2 10E3/UL) 0.1 10E3/UL November 28, 2015 2:15pm IMMATURE GRANS # (AUTO)(0.0-0.0 10E3/UL) 0.0 10E3/UL November 28, 2015 2:15pm DIFF TYPE AUTOMATED November 28, 2015 2:15pm 60722-4: D-DIMER 92302-5: D-DIMER(0.00-0.49 UG/ML) 0.60 UG/ML November 28, 2015 2:15pm 05572-8: COMPLETE METABOLIC PROFILE GLUCOSE(70-110 MG/DL) 112 MG/DL November 28, 2015 2:15pm BLOOD UREA NITROGEN(6-20 MG/DL) 14 MG/DL November 28, 2015 2:15pm CREATININE(0.50-1.20 MG/DL) 0.80 MG/DL November 28, 2015 2:15pm 01556-5: EST GLOMERULAR FILTRATION RATE(Greater than or equal to 60) Greater than or equal to 60 Result Comments: If the patient is of -[place] descent/extraction multiply the eGFR value by 1.212 to obtain the actual eGFR. >=60 mg/dL Normal 30-59 mg/dL Moderate Kidney Disease 15-29 mg/dL Severe Kidney Disease <15 mg/dL Kidney Failure November 28, 2015 2:15pm BUN CREATININE RATIO(10.0-20.0 RATIO) 18.0 RATIO November 28, 2015 2:15pm SODIUM(135-145 MMOL/L) 139 MMOL/L November 28, 2015 2:15pm POTASSIUM(3.6-5.0 MMOL/L) 3.8 MMOL/L November 28, 2015 2:15pm CHLORIDE(101-111 MMOL/L) 106 MMOL/L November 28, 2015 2:15pm 8-9: CO2(21-31 MMOL/L) 27.0 MMOL/L November 28, 2015 2:15pm 03365-2: ANION GAP(8-18) 10 November 28, 2015 2:15pm OSMO CALCULATED(270.0-290.0) 278.8 November 28, 2015 2:15pm CALCIUM(8.5-10.5 MG/DL) 9.0 MG/DL November 28, 2015 2:15pm BILIRUBIN,TOTAL(0.1-1.2 MG/DL) 0.5 MG/DL November 28, 2015 2:15pm ALKALINE PHOSPHATASE(42-121 IU/L) 59 IU/L November 28, 2015 2:15pm ASPARTATE AMINO TRANSFERASE(10-42 IU/L) 15 IU/L November 28, 2015 2:15pm ALANINE AMINOTRANSFERASE(10-60 IU/L) 15 IU/L November 28, 2015 2:15pm 75865-1: TOTAL PROTEIN(6.4-8.2 G/DL) 7.2 G/DL November 28, 2015 2:15pm ALBUMIN(3.5-5.5 G/DL) 4.2 G/DL November 28, 2015 2:15pm 2336-6: GLOBULIN(2.4-3.6) 3.0 November 28, 2015 2:15pm ALBUMIN/GLOBULIN RATIO(0.9-1.8 RATIO) 1.4 RATIO November 28, 2015 2:15pm 69989-1: CARDIAC TROPONIN I 76672-6: CARDIAC TROPONIN I(0.01-0.04 NG/ML) Less than 0.01 NG/ML Result Comments: REFERENCE RANGES: NEGATIVE < 0.04 NG/ML POSSIBLE MYCARDIAL INVOLVEMENT >/=0.04 NG/ML INTERPRET TROPONIN I RESULT IN LIGHT OF THE TOTAL CLINICAL PRESENTATION INCLUDING CLINICAL HISTORY. ANY CONDITION RESULTING IN MYOCARDIAL INJURY CAN POTENTIALLY ELEVATE TROPONIN I LEVELS ABOVE EXPECTED NORMAL RANGES. NOTE NEW REFERENCE RANGE November 28, 2015 2:14pm 19695-6: BETA NATRIURETIC PEPTIDE 26693-2: BETA NATRIURETIC PEPTIDE(0-100 PG/ML) 58 PG/ML November 28, 2015 2:15pm Allergies and Adverse Reactions Allergies and Adverse Reactions Patient Unit Number: [id number] Agent Type Reaction Severity Status NO KNOWN ALLERGIES Drug Allergy Unknown Mild Active Problem List Problem List Visit/Account #[id number] (November 28, 2015 1:49pm - November 28, 2015 5:23pm) Acute Problems: Code/Condition Comments Documented Start Date Documented Resolved Date Code (s) Atypical pneumonia ICD10: J18.9 Atypical pneumonia ICD9: 486 Atypical pneumonia SNOMED: 307326625 Atypical pneumonia Cellulitis of right lower extremity without foot ICD10: L03.115 Cellulitis of right lower extremity without foot ICD9: 682.6 Cellulitis of right lower extremity without foot SNOMED: 405633664 Cellulitis of right lower extremity without foot Plan of Care Plan Of Care Visit/Account #[id number] (November 28, 2015 1:49pm - November 28, 2015 5:23pm) Patient Instructions Keflex as directed Doxycycline as directed Tylenol as needed for discomfort See your doctor next week in [facility] as discussed to follow up If worsening return to ER Vital Signs Vital Signs Visit/Account #[id number] (November 28, 2015 1:49pm - November 28, 2015 5:23pm) Sign First Result Last Result Code(s) Body Mass Index Body Mass Index (BMI): 40.0 kg/m2 On November 28, 2015 1:48pm 62327-6 BMI (body mass index) Body Mass Index as a Calculated Value 40.3 kg/m2 On November 28, 2015 1:48pm 96958-5 BMI (body mass index) Body Surface Area as a Calculated Value 2.41 m2 On November 28, 2015 1:48pm 3140-1 BSA (body surface area) Height (Feet/Inches) 5 [ft_us] 10 [in_us] On November 28, 2015 1:48pm Temperature in Fahrenheit Temperature (Fahrenheit): 97.3 [degF] On November 28, 2015 1:48pm Temperature (Fahrenheit): 97.9 [degF] On November 28, 2015 5:16pm 8310-5 Body Temperature Weight in Kilograms Weight (Kilograms): 127.27 kg On November 28, 2015 1:48pm 3141-9 Weight Measured 55987-8 Body weight measured in kilograms Functional Status Functional and Cognitive Status No Functional Status Data Medications Discharge Medications - Medications that patient should continue to take. Review with physician Visit/Account #[id number] (November 28, 2015 1:49pm - November 28, 2015 5:23pm) Medication Route Sig/Schedule Precondition/Indication Comments/Instructions Codes Doxycycline Monohydrate(DOXYCYCLINE MONOHYDRATE) 100 MG CAPSULE Dose: 100 MG ORAL TWICE A DAY Doxycycline Monohydrate 100 MG Oral Capsule (RxNorm): 9124310 Doxycycline Monohydrate (DOXYCYCLINE MONOHYDRATE) NDC: 27537702697 KEFLEX(CEPHALEXIN MONOHYDRATE) 500 MG CAPSULE Dose: 500 MG ORAL 4 TIMES DAILY Cephalexin 500 MG Oral Capsule (RxNorm): 268195 KEFLEX (CEPHALEXIN MONOHYDRATE) NDC: 63559436891 History Of Encounters Encounters Visit/Account #[id number] (November 28, 2015 1:49pm - November 28, 2015 5:23pm) Account Status Physican Of Record Reason For Visit Visit Diagnosis Start Date/Time Stop Date/Time ER LUCY Marcie ORTEZ, DO SWELLING IN LEGS/FEET M79.89: OTHER SPECIFIED SOFT TISSUE DISORDERS ICD10 Nov 28, 2015 1:49pm Nov 28, 2015 5:23pm History of Procedures Procedure List No procedures recorded. Discharge Instructions Discharge Instructions Visit/Account #[id number] (November 28, 2015 1:49pm - November 28, 2015 5:23pm) DISCHARGE INSTRUCTIONS Physician Documentation Social History Social History No Social History Data. Immunizations Immunizations Patient Unit Number: [id number] Immunizations No immunizations recorded.
--- OUTSIDE RECORDS SUMMARY | 2017-02-16 05:09 | XMS REPORT ---
Author Author ARLENE ULRICH Organization eClinicalWorks Address Unknown Phone Unavailable Care Team Providers Care Health Care Sanitary Technician Name Role Phone ARLENE ULRICH CP Unavailable Allergies, Adverse Reactions, Alerts Substance Reaction Event Type penicillin Info Not Available Non Drug Allergy Problems Problem Type Condition Code Onset Dates Condition Status Assessment Mixed hyperlipidemia E78.2 Active Assessment Other seasonal allergic rhinitis J30.2 Active Problem Other seasonal allergic rhinitis J30.2 Active Problem Visual changes H53.9 Active Problem Mixed hyperlipidemia E78.2 Active Problem History of long-term use of multiple prescription drugs Z92.29 Active Assessment Essential hypertension I10 Active Problem Umbilical hernia without obstruction and without gangrene K42.9 Active Problem Essential hypertension I10 Active Medications Medication Code System Code Instructions Start Date End Date Status Dosage Toprol XL [facility] [address]-90 25 MG Orally Once a day 1 tablet Lisinopril-Hydrochlorothiazide [facility] [address]-41 20-25 MG Orally Once a day 1 tablet Fish Oil [facility] [address]-11 1000 MG Orally Once a day 1 capsule Zyrtec Allergy [facility] [address]-97 10 mg Orally Once a day Jun 25, 2016 Sep 23, 2016 1 tablet Aspir-81 [facility] [address]-45 81 MG Orally Once a day 1 tablet Lovastatin [facility] [address]-40 20 mg Orally Once a day 1 tablet at night Fluticasone Propionate [facility] [address]-02 50 MCG/ACT Nasally Once a day 1 spray in each nostril Procedures Procedure Coding System Code Date Office Visit, Est Pt., Level 4 CPT-4 20340 Jun 25, 2016 [facility] VISIT ESTABLISHED PATIENT CPT-4 G0467 Jun 25, 2016 Vital Signs Date/Time: Jun 25, 2016 Cardiac Monitoring Heart Rate 72 bpm Weight 261.0 lbs Height 68 in BMI 39.68 Index Blood Pressure Diastolic 90 mmHg Blood Pressure Systolic 142 mmHg Results No Known Results Summary Purpose eClinicalWorks Submission
--- OUTSIDE RECORDS SUMMARY | 2017-02-16 05:09 | XMS REPORT ---
Author Author ARLENE ULRICH Organization eClinicalWorks Address Unknown Phone Unavailable Care Team Providers Care Mailroom Courier Name Role Phone ARLENE ULRICH CP Unavailable [...] hypertension I10 Active Medications No Known Medications Procedures Procedure Coding System Code Date CHEST X-RAY CPT-4 59094 Jul 15, 2016 Results No Known Results Summary Purpose eClinicalWorks Submission
--- OUTSIDE RECORDS SUMMARY | 2017-02-16 05:10 | XMS REPORT ---
Author Author ARLENE ULRICH [facility] eClinicalWorks Address Unknown Phone Unavailable Care Team Providers Care Leather Cartridge Belt Maker Name Role Phone ARLENE ULRICH CP Unavailable Allergies, Adverse Reactions, Alerts Substance Reaction Event Type penicillin Info Not Available Non Drug Allergy Problems Problem Type Condition ICD-9 Code Onset Dates Condition Status Assessment Dyspnea on exertion 786.09 Active Assessment Hypertension 401.9 Active Assessment Edema 782.3 Active Assessment Abnormal EKG 794.31 Active Assessment Hyperlipidemia 272.4 Active Problem Hyperlipidemia 272.4 Active Problem Hypertriglyceridemia [...] Start Date End Date Status Dosage Lovastatin [facility] [address]-68 10 MG Orally Once a day 1 tablet at night Lisinopril-Hydrochlorothiazide [facility] [address]-59 10-12.5 MG Orally Once a day 1 tablet Fish Oil [facility] [address]-80 1000 MG Orally Once a day 1 capsule Lisinopril-Hydrochlorothiazide [facility] [address]-47 10-12.5 MG Orally Once a day Jun 28, 2015 1 tablet Procedures Procedure Coding System Code Date [facility] VISIT ESTABLISHED PATIENT CPT-4 G0467 Jul 12, 2015 Office Visit, Est Pt., Level 3 CPT-4 12577 Jul 12, 2015 [facility] C[facility] NOBLL Jul 12, 2015 VENIPUNCT, ROUTINE* CPT-4 14732 Jul 12, 2015 Vital Signs Date/Time: Jul 12, 2015 Temperature 98.2 F Weight 294.4 lbs Height 68 in BMI 44.76 Index Blood Pressure Diastolic 84 mmHg Blood Pressure Systolic 130 mmHg Cardiac Monitoring Heart Rate 76 bpm Results Name Result Date Reference Range Unit Abnormality Flag ROUTINE VENIPUNCTURE CMP ----Sodium, Serum 139 20150712 134-144 mmol/L ----BUN/Creatinine Ratio 17 20150712 10-22 ----Chloride, Serum 97 32331254 97-108 mmol/L ----Potassium, Serum 4.4 20150712 3.5-5.2 mmol/L ----Calcium, Serum 10.4 20150712 8.6-10.2 mg/dL H ----Protein, Total, Serum 7.1 20150712 6.0-8.5 g/dL ----Carbon Dioxide, Total 24 20150712 18-29 mmol/L ----A/G Ratio 1.8 20150712 1.1-2.5 ----eGFR If NonAfricn Am 103 [id number] >59 mL/min/1.73 ----Bilirubin, Total 0.5 20150712 0.0-1.2 mg/dL ----eGFR If Africn Am 119 [id number] >59 mL/min/1.73 ----BUN 11 20150712 8-27 mg/dL ----Albumin, Serum 4.6 88734412 3.6-4.8 g/dL ----Globulin, Total 2.5 93508636 1.5-4.5 g/dL ----Creatinine, Serum 0.63 20150712 0.76-1.27 mg/dL L ----ALT (SGPT) 28 20150712 0-44 IU/L ----Glucose, Serum 87 07998289 65-99 mg/dL ----Alkaline Phosphatase, S 126 40206720 39-117 IU/L H ----AST (SGOT) 26 22664258 0-40 IU/L Summary Purpose eClinicalWorks Submission
--- OUTSIDE RECORDS SUMMARY | 2017-02-16 05:10 | XMS REPORT | Continuity of Care Document ---
Author Author [facility] Organization [facility] Address Unknown Phone Unavailable Allergies Active Description Code Type Severity Reaction Onset Reported/Identified Relationship to Patient Clinical Status Yes Penicillins [id number] Drug Allergy Unknown N/A 09/24/2010 Medications Problems Date Dx Coded Attending Type Code Diagnosis Diagnosed By 09/28/2010 Ot 715.35 09/28/2010 Ot V12.54 12/10/2010 Ot 716.16 12/10/2010 Ot 717.2 12/10/2010 Ot 717.7 12/10/2010 Ot 727.00 05/25/2012 Ot V43.65 KNEE JOINT REPLACEMENT STATUS 05/25/2012 Ot V48.1 DEFICIENCIES NECK/TRUNK 05/25/2012 Ot V57.1 PHYSICAL THERAPY NEC 07/21/2012 Ot V43.65 KNEE JOINT REPLACEMENT STATUS 07/21/2012 Ot V54.81 AFTERCARE FOLLOWING JOINT REPLACEMENT 07/21/2012 Ot V57.1 PHYSICAL THERAPY NEC 12/27/2014 MADL FINANCIAL PLANNING ADVISER, ARLENE L 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 12/27/2014 MADL FINANCIAL PLANNING ADVISER, ARLENE L 434.90 CEREBRAL ARTERY OCCLUSION UNSPECIFIED WITHOUT CEREBRAL INFARCTION 12/27/2014 MADL FINANCIAL PLANNING ADVISER, ARLENE L V16.9 FAMILY HISTORY OF UNSPECIFIED MALIGNANT NEOPLASM 12/27/2014 MADL FINANCIAL PLANNING ADVISER, ARLENE L V18.0 FAMILY HISTORY OF DIABETES MELLITUS 08/09/2015 Ot 733.49 08/09/2015 Ot 791.9 08/09/2015 Ot V57.1 08/09/2015 Ot V72.63 08/09/2015 Ot V72.81 08/09/2015 Ot V74.8 08/09/2015 Ot 717.3 08/09/2015 Ot V72.83 08/09/2015 Ot V74.8 09/13/2015 LUIS ENRIQUE SOMMER MD Ot E66.9 OBESITY, UNSPECIFIED 09/13/2015 LUIS ENRIQUE SOMMER MD Ot E78.5 HYPERLIPIDEMIA, UNSPECIFIED 09/13/2015 LUIS ENRIQUE SOMMER MD Ot I10 ESSENTIAL (PRIMARY) HYPERTENSION 09/13/2015 LUIS ENRIQUE SOMMER MD Ot I25.10 ATHSCL HEART DISEASE OF [place] CORONARY 09/13/2015 LUIS ENRIQUE SOMMER MD Ot R07.9 CHEST PAIN, UNSPECIFIED 09/13/2015 LUIS ENRIQUE SOMMER MD Ot R94.39 ABNORMAL RESULT OF OTHER CARDIOVASCULAR 09/13/2015 LUIS ENRIQUE SOMMER MD Ot Z68.38 BODY MASS INDEX (BMI) 38.0-38.9, ADULT 09/13/2015 LUIS ENRIQUE SOMMER MD Ot Z79.899 OTHER DETENTION (CURRENT) DRUG THERAPY 09/13/2015 LUIS ENRIQUE SOMMER MD Ot Z87.891 PERSONAL HISTORY OF NICOTINE DEPENDENCE 09/14/2015 LUIS ENRIQUE SOMMER MD Ot 401.9 09/14/2015 LUIS ENRIQUE SOMMER MD Ot 782.3 09/14/2015 LUIS ENRIQUE SOMMER MD Ot 786.09 09/14/2015 LUIS ENRIQUE SOMMER MD Ot 786.50 09/20/2015 LUIS ENRIQUE SOMMER MD Ot 401.9 09/20/2015 LUIS ENRIQUE SOMMER MD Ot 782.3 09/20/2015 LUIS ENRIQUE SOMMER MD Ot 786.09 09/20/2015 LUIS ENRIQUE SOMMER MD Ot 786.50 10/12/2015 Ot I10 10/12/2015 Ot R06.00 10/12/2015 Ot R07.9 10/12/2015 Ot R60.9 10/24/2015 Ot I10 10/24/2015 Ot R06.00 10/24/2015 Ot R07.9 10/24/2015 Ot R60.9 01/11/2016 SARAH LARA MD Ot K43.2 INCISIONAL HERNIA WITHOUT OBSTRUCTION OR 02/05/2016 SARAH LARA MD Ot K43.2 02/05/2016 SARAH LARA MD Ot Z01.812 02/05/2016 SARAH LARA MD Ot Z11.2 07/25/2016 LUIS ENRIQUE SOMMER MD Ot 401.9 HYPERTENSION NOS 07/25/2016 KEMAL CASTLE, LUIS ENRIQUE Fox Ot 782.3 EDEMA 07/25/2016 LUIS ENRIQUE SOMMER MD Ot 786.09 RESPIRATORY ABNORM NEC 07/25/2016 LUIS ENRIQUE SOMMER MD Ot 786.50 CHEST PAIN NOS 07/25/2016 Ot I10 ESSENTIAL (PRIMARY) HYPERTENSION 07/25/2016 Ot R06.00 DYSPNEA, UNSPECIFIED 07/25/2016 Ot R07.9 CHEST PAIN, UNSPECIFIED 07/25/2016 Ot R60.9 EDEMA, UNSPECIFIED 07/25/2016 SARAH LARA MD Ot K43.2 INCISIONAL HERNIA WITHOUT OBSTRUCTION OR 07/25/2016 SARAH LARA MD Ot Z01.812 ENCOUNTER FOR PREPROCEDURAL LABORATORY E 07/25/2016 SARAH LARA MD, Ot Z11.2 ENCOUNTER FOR SCREENING FOR OTHER BACTER 07/31/2016 MADL, ARLENE L STOVE BOTTOM WORKER Ot K76.0 FATTY (CHANGE OF) LIVER, NOT ELSEWHERE C 07/31/2016 MADL, ARLENE L [employer]OVE [employer]OTT[employer] WORKER Ot R93.8 ABNORMAL FINDINGS ON DIAGNOSTIC IMAGING 08/02/2016 MADL, ARLENE L [employer] WORKER Ot K76.0 FATTY (CHANGE OF) LIVER, NOT ELSEWHERE C 08/02/2016 MADL, ARLENE L [employer] WORKER Ot R93.8 ABNORMAL FINDINGS ON DIAGNOSTIC IMAGING 08/20/2016 MADL, ARLENE L [employer] WORKER Ot K76.0 FATTY (CHANGE OF) LIVER, NOT ELSEWHERE C 08/20/2016 MADL, ARLENE L [employer] WORKER Ot R93.8 ABNORMAL FINDINGS ON DIAGNOSTIC IMAGING 08/21/2016 MADL, ARLENE L [employer] WORKER Ot K76.0 FATTY (CHANGE OF) LIVER, NOT ELSEWHERE C 08/21/2016 MADL, ARLENE L [employer] WORKER Ot R93.8 ABNORMAL FINDINGS ON DIAGNOSTIC IMAGING Procedures Code [place] [address] ROUTINE VENIPUNCTURE 12/28/2014 80098 CMP 12/28/2014 94201 LIPID PANEL 12/28 8074815 GFR CALC (RESULT ONLY) 12/28/2014 02900 PSA TOTAL 2014 11216 TSH 12/28/2014 84302 BNP 12/29/2014 Results Test Result Range Complete blood count (CBC) with automated white blood cell (WBC) differential - 02/12/17 14:45 Blood leukocytes automated count (number/volume) 10.6 10*3/ uL 4.3-11.0 Blood erythrocytes automated count (number/volume) 4.94 10*6 /uL 4.35-5.85 Venous blood hemoglobin measurement (mass/volume) 15.6 g/dL 13.3-17.7 Blood hematocrit (volume fraction) 45 % 40-54 Automated erythrocyte mean corpuscular volume 91 [foz_us] 80-99 Automated erythrocyte mean corpuscular hemoglobin (mass per erythrocyte) 32 pg 25-34 Automated erythrocyte mean corpuscular hemoglobin concentration measurement ( mass/volume) 35 g/dL 32-36 Automated erythrocyte distribution width ratio 13.5 % 10.0-14.5 Automated blood platelet count (count/volume) 293 10*3/uL 130-400 Automated blood platelet mean volume measurement 10.2 [foz_ us] 7.4-10.4 Automated blood neutrophils/100 leukocytes 61 % 42-75 Automated blood lymphocytes/100 leukocytes 31 % 12-44 Blood monocytes/100 leukocytes 6 % 0-12 Automated blood eosinophils/100 leukocytes 1 % 0-10 Automated blood basophils/100 leukocytes 0 % 0-10 Blood neutrophils automated count (number/volume) 6.5 10*3 1.8-7.8 Blood lymphocytes automated count (number/volume) 3.3 10*3 1.0-4.0 Blood monocytes automated count (number/volume) 0.7 10*3 0.0-1.0 Automated eosinophil count 0.1 10*3/uL 0.0-0.3 Automated blood basophil count (count/volume) 0.0 10*3/uL 0.0-0.1 Comprehensive metabolic panel - 02/12/17 14:45 Serum or plasma sodium measurement (moles/volume) 138 mmol/ L 135-145 Serum or plasma potassium measurement (moles/volume) 3.8 mmol/L 3.6-5.0 Serum or plasma chloride measurement (moles/volume) 103 mmol /L 98-107 Carbon dioxide 28 mmol/L 21-32 Serum or plasma anion gap determination (moles/volume) 7 mmol/L 5-14 Serum or plasma urea nitrogen measurement (mass/volume) 13 mg/dL 7-18 Serum or plasma creatinine measurement (mass/volume) 0.81 mg /dL 0.60-1.30 Serum or plasma urea nitrogen/creatinine mass ratio 16 NRG Serum or plasma creatinine measurement with calculation of estimated glomerular filtration rate > NRG Serum or plasma glucose measurement (mass/volume) 176 mg/dL 70-105 Serum or plasma calcium measurement (mass/volume) 9.6 mg/dL 8.5-10.1 Serum or plasma total bilirubin measurement (mass/volume) 1.0 mg/dL 0.1-1.0 Serum or plasma alkaline phosphatase measurement (enzymatic activity/volume) 89 U/L 40-136 Serum or plasma aspartate aminotransferase measurement (enzymatic activity/ volume) 18 U/L 5-34 Serum or plasma alanine aminotransferase measurement (enzymatic activity/volume ) 22 U/L 0-55 Serum or plasma protein measurement (mass/volume) 7.2 g/dL 6.4-8.2 Serum or plasma albumin measurement (mass/volume) 4.2 g/dL 3.2-4.5 Methicillin resistant Staphylococcus aureus (MRSA) screening culture - 17:20 Methicillin resistant Staphylococcus aureus (MRSA) screening culture NEG NRG Complete urinalysis with reflex to culture - 02/12/17 20:11 Urine color determination YELLOW NRG Urine clarity determination SLIGHTLY CLOUDY NRG Urine pH measurement by test strip 5 5- 9 Specific gravity of urine by test strip 1.010 1.016-1.022 Urine protein assay by test strip, semi-quantitative 1+ NEGATIVE Urine glucose detection by automated test strip NEGATIVE NEGATIVE Erythrocytes detection in urine sediment by light microscopy NEGATIVE NEGATIVE Urine ketones detection by automated test strip NEGATIVE NEGATIVE Urine nitrite detection by test strip NEGATIVE NEGATIVE Urine total bilirubin detection by test strip NEGATIVE NEGATIVE Urine urobilinogen measurement by automated test strip (mass/volume) NORMAL NORMAL Urine leukocyte esterase detection by dipstick NEGATIVE NEGATIVE Automated urine sediment erythrocyte count by microscopy (number/high power field) NONE NRG Automated urine sediment leukocyte count by microscopy (number/high power field ) [HPF] NRG Bacteria detection in urine sediment by light microscopy NEGATIVE NRG Crystals detection in urine sediment by light microscopy NONE NRG Casts detection in urine sediment by light microscopy NONE NRG Mucus detection in urine sediment by light microscopy NEGATIVE NRG Complete urinalysis with reflex to culture NO NRG Complete blood count (CBC) with automated white blood cell (WBC) differential - 02/13/17 05:15 Blood leukocytes automated count (number/volume) 7.9 10*3/ uL 4.3-11.0 Blood erythrocytes automated count (number/volume) 4.63 10*6 /uL 4.35-5.85 Venous blood hemoglobin measurement (mass/volume) 14.7 g/dL 13.3-17.7 Blood hematocrit (volume fraction) 42 % 40-54 Automated erythrocyte mean corpuscular volume 91 [foz_us] 80-99 Automated erythrocyte mean corpuscular hemoglobin (mass per erythrocyte) 32 pg 25-34 Automated erythrocyte mean corpuscular hemoglobin concentration measurement ( mass/volume) 35 g/dL 32-36 Automated erythrocyte distribution width ratio 13.4 % 10.0-14.5 Automated blood platelet count (count/volume) 256 10*3/uL 130-400 Automated blood platelet mean volume measurement 10.1 [foz_ us] 7.4-10.4 Automated blood neutrophils/100 leukocytes 61 % 42-75 Automated blood lymphocytes/100 leukocytes 26 % 12-44 Blood monocytes/100 leukocytes 10 % 0-12 Automated blood eosinophils/100 leukocytes 2 % 0-10 Automated blood basophils/100 leukocytes 0 % 0-10 Blood neutrophils automated count (number/volume) 4.8 10*3 1.8-7.8 Blood lymphocytes automated count (number/volume) 2.1 10*3 1.0-4.0 Blood monocytes automated count (number/volume) 0.8 10*3 0.0-1.0 Automated eosinophil count 0.2 10*3/uL 0.0-0.3 Automated blood basophil count (count/volume) 0.0 10*3/uL 0.0-0.1 Encounters ACCT No. Visit Date/Time Discharge Status Pt. Type Provider Facility Loc./Unit Complaint [id number] 12/09/2014 15:56:49 12/09/2014 23: 59:59 CLS Outpatient Vern Camara
--- OUTSIDE RECORDS SUMMARY | 2017-02-16 05:10 | XMS REPORT ---
Author Author ARLENE ULRICH [facility] [employer] Address Unknown Phone Unavailable Care Team Providers Care Philosophy Specialist Name Role Phone ARLENE ULRICH Unavailable Allergies, Adverse Reactions, Alerts Substance Reaction Event Type penicillin Info Not Available Non Drug Allergy Problems Problem Type Condition Code Onset Dates Condition Status Problem Family history of diabetes mellitus V18.0 Active Problem Hypertriglyceridemia 272.1 Active Problem Family history of unspecified malignant neoplasm V16.9 Active Problem Other seasonal allergic rhinitis J30.2 Active Problem Visual changes H53.9 Active Problem Mixed hyperlipidemia E78.2 Active Problem History of long-term use of multiple prescription drugs Z92.29 Active Problem Hyperlipidemia 272.4 Active Problem Umbilical hernia without obstruction and without gangrene K42.9 Active Problem Essential hypertension I10 Active Assessment Mixed hyperlipidemia E78.2 Active Assessment Essential hypertension I10 Active Problem Unspecified cerebral artery occlusion without mention of cerebral infarction 434.90 Active Assessment Other seasonal allergic rhinitis J30.2 Active Problem Legal blindness, 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 Active Medications Medication Code System Code Instructions Start Date End Date Status Dosage Toprol XL [facility] [address]-72 25 MG Orally Once a day 1 tablet Lisinopril-Hydrochlorothiazide [facility] [address]-39 20-25 MG Orally Once a day 1 tablet Fluticasone Propionate [facility] [address]-05 50 MCG/ACT Nasally Once a day March 19, 2016 1 spray in each nostril Lovastatin [facility] [address]-79 20 MG Orally Once a day 1 tablet at night Aspir-81 [facility] [address]-04 81 MG Orally Once a day 1 tablet Fish Oil [facility] [address]-34 1000 MG Orally Once a day 1 capsule Procedures Procedure Coding System Code Date Office Visit, Est Pt., Level 4 CPT-4 42138 March 19, 2016 [facility] VISIT ESTABLISHED PATIENT CPT-4 G0467 March 19, 2016 Vital Signs Date/Time: March 19, 2016 Temperature 98.0 F Weight 251.3 lbs Height 68 in BMI 38.21 Index Blood Pressure Diastolic 80 mmHg Blood Pressure Systolic 132 mmHg Cardiac Monitoring Heart Rate 86 bpm Results No Known Results Summary Purpose eClinicalWorks Submission
--- OUTSIDE RECORDS SUMMARY | 2017-02-16 05:10 | XMS REPORT | Continuity Of Care Document ---
Author Author [facility] Organization [facility] Address [address] [place] [address] Phone Care Team Providers Care Diamond Expert Name Role Phone YANG CASTLE, ALICIA Marshall AD BERTHA CASTLE, HORTENCIA Mendez AT [phone] NERISSA HEMPHILL DO PP [phone] Results Lab Results Visit/Account #[id number] (December 27, 2013 10:04pm - December 29, 2013 7:40pm ) Test Result Reported Date/Time COMPLETE BLOOD COUNT WITH DIFF WHITE BLOOD COUNT(4.0-11.0 10E3/UL) 6.4 10E3/UL December 28, 2013 4:03am RED BLOOD COUNT(4.40-5.90 10E6/UL) 4.50 10E6/UL December 28, 2013 4:03am HEMOGLOBIN(13.0-18.0 G/DL) 13.3 G/DL December 28, 2013 4:03am HEMATOCRIT(39.0-54.0 %) 39.9 % December 28, 2013 4:03am MEAN CORPUSCULAR VOLUME(80.0-100.0 FL) 88.7 FL December 28, 2013 4:03am MEAN CORPUSCULAR HEMOGLOBIN(27.0-34.0 PG) 29.6 PG December 28, 2013 4:03am MEAN CORPUSCULAR HGB CONC(33.0-37.0 G/DL) 33.3 G/DL December 28, 2013 4:03am RED CELL DISTRIBUTION WIDTH(11.0-15.0 %) 13.1 % December 28, 2013 4:03am 777-3: PLATELET COUNT(130-400 10E3/UL) 174 10E3/UL December 28, 2013 4:03am MEAN PLATELET VOLUME(7.4-11.0 FL) 10.1 FL December 28, 2013 4:03am NEUTROPHILS % (AUTO)(40-70 %) 64 % December 28, 2013 4:03am LYMPHOCYTES % (AUTO)(15-45 %) 22 % December 28, 2013 4:03am MONOCYTES % (AUTO)(2-10 %) 9 % December 28, 2013 4:03am EOSINOPHILS % (AUTO)(0-6 %) 3 % December 28, 2013 4:03am BASOPHILS % (AUTO)(0-1 %) 1 % December 28, 2013 4:03am IMMATURE GRANS % (AUTO)(0-0 %) 0 % December 28, 2013 4:03am NUCLEATED RBCS (AUTO)(0-0 %) 0 % December 28, 2013 4:03am NEUTROPHILS # (AUTO)(2.5-7.5 10E3/UL) 4.1 10E3/UL December 28, 2013 4:03am LYMPHOCYTES # (AUTO)(1.0-4.0 10E3/UL) 1.4 10E3/UL December 28, 2013 4:03am MONOCYTES # (AUTO)(0.2-0.8 10E3/UL) 0.6 10E3/UL December 28, 2013 4:03am EOSINOPHILS # (AUTO)(0.0-0.4 10E3/UL) 0.2 10E3/UL December 28, 2013 4:03am BASOPHILS # (AUTO)(0.0-0.2 10E3/UL) 0.1 10E3/UL December 28, 2013 4:03am IMMATURE GRANS # (AUTO)(0.0-0.0 10E3/UL) 0.0 10E3/UL December 28, 2013 4:03am DIFF TYPE AUTOMATED December 28, 2013 4:03am COMPLETE BLOOD COUNT WHITE BLOOD COUNT(4.0-11.0 10E3/UL) 7.1 10E3/UL December 29, 2013 6:47am RED BLOOD COUNT(4.40-5.90 10E6/UL) 4.69 10E6/UL December 29, 2013 6:47am HEMOGLOBIN(13.0-18.0 G/DL) 13.6 G/DL December 29, 2013 6:47am HEMATOCRIT(39.0-54.0 %) 41.8 % December 29, 2013 6:47am MEAN CORPUSCULAR VOLUME(80.0-100.0 FL) 89.1 FL December 29, 2013 6:47am MEAN CORPUSCULAR HEMOGLOBIN(27.0-34.0 PG) 29.0 PG December 29, 2013 6:47am MEAN CORPUSCULAR HGB CONC(33.0-37.0 G/DL) 32.5 G/DL December 29, 2013 6:47am RED CELL DISTRIBUTION WIDTH(11.0-15.0 %) 12.8 % December 29, 2013 6:47am 777-3: PLATELET COUNT(130-400 10E3/UL) 180 10E3/UL December 29, 2013 6:47am MEAN PLATELET VOLUME(7.4-11.0 FL) 10.4 FL December 29, 2013 6:47am NUCLEATED RBCS (AUTO)(0-0 %) 0 % December 29, 2013 6:47am PROTHROMBIN TIME WITH INR PROTHROMBIN TIME(12.1-14.0 SEC) 13.8 SEC December 28, 2013 4:10am 18007-4: INR 1.08 Result Comments: INR reference interval applies to patients on anticoagulant therapy. Suggested INR therapeutic range for oral anticoagulant therapy: (Stabilized anticoagulated patients) Routine Therapy: 2.0 to 3.0 Recurrent Myocardial Infarction: 2.5 to 3.5 Mechanical Prosthetic Valves: 2.5 to 3.5 December 28, 2013 4:10am COMPLETE METABOLIC PROFILE GLUCOSE(70-110 MG/DL) 110 MG/DL December 28, 2013 4:29am BLOOD UREA NITROGEN(6-20 MG/DL) 12 MG/DL December 28, 2013 4:29am CREATININE(0.50-1.20 MG/DL) 0.76 MG/DL December 28, 2013 4:29am EST GLOMERULAR FILTRATION RATE(Greater than or equal to 60) Greater than or equal to 60 Result Comments: If the patient is of -[place] descent/extraction multiply the eGFR value by 1.212 to obtain the actual eGFR. >=60 mg/dL Normal 30-59 mg/dL Moderate Kidney Disease 15-29 mg/dL Severe Kidney Disease <15 mg/dL Kidney Failure December 28, 2013 4:29am BUN CREATININE RATIO(10.0-20.0 RATIO) 16.0 RATIO December 28, 2013 4:29am SODIUM(135-145 MMOL/L) 139 MMOL/L December 28, 2013 4:29am POTASSIUM(3.6-5.0 MMOL/L) 4.0 MMOL/L December 28, 2013 4:29am CHLORIDE(101-111 MMOL/L) 106 MMOL/L December 28, 2013 4:29am CO2(21-31 MMOL/L) 25.0 MMOL/L December 28, 2013 4:29am ANION GAP(8-18) 12 December 28, 2013 4:29am OSMO CALCULATED(270.0-290.0) 277.9 December 28, 2013 4:29am CALCIUM(8.5-10.5 MG/DL) 9.0 MG/DL December 28, 2013 4:29am BILIRUBIN,TOTAL(0.1-1.2 MG/DL) 0.5 MG/DL December 28, 2013 4:29am ALKALINE PHOSPHATASE(42-121 U/L) 37 U/L December 28, 2013 4:29am ASPARTATE AMINO TRANSFERASE(10-42 U/L) 13 U/L December 28, 2013 4:29am ALANINE AMINOTRANSFERASE(10-60 U/L) 17 U/L December 28, 2013 4:29am TOTAL PROTEIN(6.4-8.2 G/DL) 6.4 G/DL December 28, 2013 4:29am ALBUMIN(3.5-5.5 G/DL) 3.8 G/DL December 28, 2013 4:29am GLOBULIN(2.4-3.6) 2.6 December 28, 2013 4:29am ALBUMIN/GLOBULIN RATIO(0.9-1.8 RATIO) 1.5 RATIO December 28, 2013 4:29am BASIC METABOLIC PANEL GLUCOSE(70-110 MG/DL) 111 MG/DL December 29, 2013 7:02am BLOOD UREA NITROGEN(6-20 MG/DL) 12 MG/DL December 29, 2013 7:02am CREATININE(0.50-1.20 MG/DL) 0.65 MG/DL December 29, 2013 7:02am EST GLOMERULAR FILTRATION RATE(Greater than or equal to 60) Greater than or equal to 60 Result Comments: If the patient is of -[place] descent/extraction multiply the eGFR value by 1.212 to obtain the actual eGFR. >=60 mg/dL Normal 30-59 mg/dL Moderate Kidney Disease 15-29 mg/dL Severe Kidney Disease <15 mg/dL Kidney Failure December 29, 2013 7:02am BUN CREATININE RATIO(10.0-20.0 RATIO) 18.0 RATIO December 29, 2013 7:02am SODIUM(135-145 MMOL/L) 137 MMOL/L December 29, 2013 7:02am POTASSIUM(3.6-5.0 MMOL/L) 4.1 MMOL/L December 29, 2013 7:02am CHLORIDE(101-111 MMOL/L) 103 MMOL/L December 29, 2013 7:02am CO2(21-31 MMOL/L) 28.0 MMOL/L December 29, 2013 7:02am ANION GAP(8-18) 10 December 29, 2013 7:02am OSMO CALCULATED(270.0-290.0) 274.3 December 29, 2013 7:02am CALCIUM(8.5-10.5 MG/DL) 9.2 MG/DL December 29, 2013 7:02am TOTAL CPK TOTAL CPK(22-269 U/L) 138 U/L December 27, 2013 11:26pm 130 U/L December 28, 2013 4:27am 124 U/L December 28, 2013 9:55am CPK MB CPK MB(0.6-6.3 NG/ML) 3.0 NG/ML December 27, 2013 11:26pm 3.0 NG/ML December 28, 2013 4:27am 2.9 NG/ML December 28, 2013 9:55am CARDIAC TROPONIN I CARDIAC TROPONIN I(0.01-0.04 NG/ML) Less than 0.01 NG/ML Result Comments: REFERENCE RANGES: NEGATIVE </=0.04 NG/ML INTERMEDIATE 0.05-0.49 NG/ML POSITIVE >/=0.50 NG/ML December 27, 2013 11:26pm Less than 0.01 NG/ML Result Comments: REFERENCE RANGES: NEGATIVE </=0.04 NG/ML INTERMEDIATE 0.05-0.49 NG/ML POSITIVE >/=0.50 NG/ML December 28, 2013 4:27am Less than 0.01 NG/ML Result Comments: REFERENCE RANGES: NEGATIVE </=0.04 NG/ML INTERMEDIATE 0.05-0.49 NG/ML POSITIVE >/=0.50 NG/ML December 28, 2013 9:55am 0.01 NG/ML Result Comments: REFERENCE RANGES: NEGATIVE </=0.04 NG/ML INTERMEDIATE 0.05-0.49 NG/ML POSITIVE >/=0.50 NG/ML December 29, 2013 7:02am LIPID PROFILE TRIGLYCERIDES(35-160 MG/DL) 50 MG/DL December 28, 2013 4:29am CHOLESTEROL(0-200 MG/DL) 127 MG/DL December 28, 2013 4:29am LDL CHOLESTEROL,DIRECT(0-99 MG/DL) 71 MG/DL December 28, 2013 4:29am VLDL CHOLESTEROL(1-53 MG/DL) 10 MG/DL December 28, 2013 4:29am HDL CHOLESTEROL(29-71 MG/DL) 48 MG/DL December 28, 2013 4:29am CHOL/HDL RATIO(0.0-4.4 RATIO) 2.6 RATIO December 28, 2013 4:29am Microbiology Results Visit/Account #[id number] (December 27, 2013 10:04pm - December 29, 2013 7:40pm ) Procedure Result Specimen #: [id number] MRSA SCREEN FOR INFEC CONTROL Result Instance On December 29, 2013 9:38am Source: NARE Special Result Comments: NO MRSA ISOLATED Allergies and Adverse Reactions Allergies and Adverse Reactions Patient Unit Number: [id number] Agent Type Reaction Severity Status Date NO KNOWN ALLERGIES Drug Allergy Unknown Mild Active March 19, 2010 Vital Signs Vital Signs Visit/Account #[id number] (December 27, 2013 10:04pm - December 29, 2013 7:40pm ) Label First Result Last Result 2710-2: O2% 95 % December 27, 2013 10:00pm 96 % December 29, 2013 6:10pm 3141-9: Weight Measured 128.4000 kg December 27, 2013 9:40pm 128.4000 kg December 27, 2013 9:40pm 8310-5: Celsius Body Temperature 36.97502 Jalyn December 27, 2013 10:00pm 36.43902 Jalyn December 29, 2013 6:10pm 8310-5: Fahrenheit Body Temperature 97.5 [degF] December 27, 2013 10:00pm 97.1 [degF] December 29, 2013 6:10pm Blood Pressure 126/67 mm[Hg] December 27, 2013 10:00pm 142/82 mm[Hg] December 29, 2013 6:10pm 8867-4: Heart Rate 70 /min December 27, 2013 10:00pm 72 /min December 29, 2013 6:10pm 9279-1: Respiratory Rate 20 /min December 27, 2013 10:00pm 18 /min December 29, 2013 6:10pm Home Medications Home Medications Visit/Account #[id number] (December 27, 2013 10:04pm - December 29, 2013 7:40pm ) Medication Dose Route Sig/Schedule Precondition/Indication Comments/ Instructions NDC Cardura(DOXAZOSIN MESYLATE) 2 MG TAB 2 MG PO: ORAL HS: AT BEDTIME Cardura (DOXAZOSIN MESYLATE): [id number] Ecotrin(ASPIRIN) 325 MG TABLET.DR 325 MG PO: ORAL PRN: NEEDED Ecotrin (ASPIRIN): 82997429334 NITROSTAT(NITROGLYCERIN) 0.4 MG TAB.SUBL 0.4 MG SL: SUBLINGUAL NITROSTAT (NITROGLYCERIN): 81329311400 Plavix(CLOPIDOGREL BISULFATE) 75 MG TAB 75 MG PO: ORAL DAILY: DAILY Plavix (CLOPIDOGREL BISULFATE): 52002735709 Lopressor(METOPROLOL TARTRATE) 25 MG TABLET 25 MG PO: ORAL BID: TWICE A DAY Lopressor (METOPROLOL TARTRATE): 43944505397 Pravachol(PRAVASTATIN SODIUM) 10 MG TABLET 10 MG PO: ORAL HS: AT BEDTIME Pravachol (PRAVASTATIN SODIUM): 79542072843 Ordered Medications Ordered Medications Visit/Account #[id number] (December 27, 2013 10:04pm - December 29, 2013 7:40pm ) Medication Dose Route Sig/Schedule Precondition/Indication Comments/ Instructions NDC ASPIRIN 325 MG TAB 325 MG PO: ORAL DAILY: DAILY (ASPIRIN): 70882220943B IV Medication Carriers: D5W 1/2 NS(DEXTROSE/SOD CHLORIDE) 1000 ML INJECTION 1000 ML IV: INTRAVEN .[id number] (Rate: 75 MLS/HR Duration: 13 HR 20 MIN) Label Comments: Pre-Catheterization Carriers: D5W 1/2 NS (DEXTROSE/SOD CHLORIDE): 09528904623 GAS-X(SIMETHICONE) 80 MG TAB 0 MG PO: ORAL Q6H PRN Reason: INDIGESTION/GAS Special Dose Instructions: 160-240 MG (2 - 3 TABS) GAS-X (SIMETHICONE): [id number] TYLENOL(ACETAMINOPHEN) 325 MG TAB 0 MG PO: ORAL Q4H PRN Reason: PRN Reason: MILD PAIN Label Comments: Do not exceed 4000 mg of total acetaminophen per 24 hours Special Dose Instructions: 325 - 650 MG TYLENOL (ACETAMINOPHEN): 65602767341G PERCOCET 5/325(OXYCODONE/ACETAMINOPHEN) 1 TAB TAB 0 TAB PO: ORAL Q4H PRN Reason: PRN Reason: MODERATE TO SEVERE PAIN Label Comments: Do not exceed 4000 mg of total acetaminophen per 24 hours Special Dose Instructions: 1-2 TABS PERCOCET 5/325 (OXYCODONE/ACETAMINOPHEN): 29967286382 AMBIEN(ZOLPIDEM TARTRATE) 5 MG TAB 0 MG PO: ORAL HS: AT BEDTIME PRN Reason: PRN Reason: SLEEP Special Dose Instructions: 5-10 MG AMBIEN (ZOLPIDEM TARTRATE): 22705880897 METAMUCIL(PSYLLIUM) 0.52 GM CAP 1.04 GM PO: ORAL TIDWM: 3 TIMES DAILY WITH MEALS METAMUCIL (PSYLLIUM): 61467809818N PROTONIX(PANTOPRAZOLE SOD) 40 MG TAB 40 MG PO: ORAL 60ACB: 60 MIN BEFORE BKFST PROTONIX (PANTOPRAZOLE SOD): 24858117368 PLAVIX(CLOPIDOGREL BISULFATE) 75 MG TAB 75 MG PO: ORAL DAILY: DAILY PLAVIX (CLOPIDOGREL BISULFATE): 96538068092 CARDURA(DOXAZOSIN MESYLATE) 2 MG TAB 2 MG PO: ORAL HS: AT BEDTIME Label Comments: MAY INCREASE FALL RISK CARDURA (DOXAZOSIN MESYLATE): 43961859614A LOPRESSOR(METOPROLOL TARTRATE) 25 MG TAB 25 MG PO: ORAL BID: TWICE A DAY Label Comments: MAY INCREASE FALL RISK LOPRESSOR (METOPROLOL TARTRATE): 34334086687 FLUVIRIN(FLU VACCINE (4YR+)/PF) 0.5 ML INJECTION 0.5 ML IM: INTRAMUSC MARLEE@09 FLUVIRIN (FLU VACCINE (4YR+)/PF): 58954373664 LOVENOX(ENOXAPARIN) 120 MG/0.8 ML INJECTION 120 MG SC: SUBCUTANEOUSLY NOW: NOW Rx Order Comments: 2300 NOW DOSE FOR LAST NIGHT WAS NOT GIVEN Label Comments: INJECT SC INTO ABDOMINAL WALL ONLY. DOSED AT __MG/KG BASED ON PT WEIGHT OF __KG AND ROUNDED PER PROTOCOL. LOVENOX (ENOXAPARIN): 84909098809 LOVENOX(ENOXAPARIN) 40 MG/0.4 ML INJECTION 40 MG SC: SUBCUTANEOUSLY Q12H Label Comments: INJECT SC INTO ABDOMINAL WALL ONLY. LOVENOX (ENOXAPARIN): 63964611253 PRAVACHOL(PRAVASTATIN SOD) 20 MG TAB 10 MG PO: ORAL HS: AT BEDTIME Label Comments: TERATOGENIC. WOMEN SHOULD NOT HANDLE OR CRUSH. PRAVACHOL (PRAVASTATIN SOD): 41525004846D Discharge Medications Discharge Medications Visit/Account #[id number] (December 27, 2013 10:04pm - December 29, 2013 7:40pm ) Medication Dose Route Sig/Schedule Precondition/Indication Comments/ Instructions NDC Cardura(DOXAZOSIN MESYLATE) 2 MG TAB 2 MG PO: ORAL HS: AT BEDTIME Cardura (DOXAZOSIN MESYLATE): 00597364408 Ecotrin(ASPIRIN) 325 MG TABLET.DR 325 MG PO: ORAL PRN: NEEDED Ecotrin (ASPIRIN): 48592460394 NITROSTAT(NITROGLYCERIN) 0.4 MG TAB.SUBL 0.4 MG SL: SUBLINGUAL NITROSTAT (NITROGLYCERIN): 33742156422 Plavix(CLOPIDOGREL BISULFATE) 75 MG TAB 75 MG PO: ORAL DAILY: DAILY Plavix (CLOPIDOGREL BISULFATE): 90949382632 Lopressor(METOPROLOL TARTRATE) 25 MG TABLET 25 MG PO: ORAL BID: TWICE A DAY Lopressor (METOPROLOL TARTRATE): 79994113953 Pravachol(PRAVASTATIN SODIUM) 10 MG TABLET 10 MG PO: ORAL HS: AT BEDTIME Pravachol (PRAVASTATIN SODIUM): 06541511149 History Of Encounters Encounters Visit/Account #[id number] (December 27, 2013 10:04pm - December 29, 2013 7:40pm ) HISTORY AND PHYSICAL December 28, 2013 9:06am Dictated By: ALICIA SORIA MD Signed By: ALICIA SORIA MD [address] [id number] Patient: KATIANA PETERS UNIT/MR#: [id number] : 1950 Age: 63 Sex: M Report#: [id number] Room#: 360-A Location: [facility] Dictator: ALICIA SORIA MD Attn Phys: HORTENCIA POSADA MD Adm Date: 12/27/13 Disch Date: 12/29/13 ~HISTORY AND PHYSICAL~ Signed PRIMARY CARE PHYSICIAN: Melanie Fabian. PRIMARY COTTON BROKER: Hortencia Posada MD. HISTORY OF PRESENT ILLNESS: This is a very pleasant gentleman that has had progressively increasing amounts of chest discomfort with ambulation. This has been going on for greater than 30 days, according to the patient. Any time he walks for any significant distance he has development of a discomfort across his chest that is described as a pressure tightness that goes away with rest. This is increasing in frequency, but it is not increasing in severity. It seems to occur at the same level of activity and would be consistent with Chester class III angina pectoris, on the basis of his description. He denies any discomfort at rest, but he has been increasingly concerned about it due to the increasing nature. Associated symptoms include dyspnea, but no nausea or diaphoresis. There is no syncope, presyncope, dizziness or lightheadedness. The patient also states that, at night, he has a sensation of drowning. He has been having nightmares. He feels like he is choking, and he will wake up choking and gasping for air. Because of that, he has been sleeping in a chair. PAST MEDICAL HISTORY: 1. Hypertension. 2. Hyperlipidemia. 3. Gastroesophageal reflux disease. 4. Coronary artery disease with a history of PCI in 2009. SOCIAL HISTORY: He is a drinker, 2 to 3 drinks a day, and sometimes more. He does not smoke. FAMILY HISTORY: Noncontributory. REVIEW OF SYSTEMS: Other than stated in the HPI, a complete review of systems was obtained and is negative. PHYSICAL EXAMINATION: VITAL SIGNS: Reviewed. Temperature 96.4, pulse regular at 72, blood pressure 132/75, O2 saturation 93% on room air. GENERAL: Alert and oriented x3. PSYCHIATRIC: Mood and affect are appropriate. NECK: Thick and short. CHEST: Clear to auscultation bilaterally. CARDIOVASCULAR: S1, S2 were distant. ABDOMEN: Markedly obese, but soft and nontender. EXTREMITIES: Reveal no edema. Pulses are palpable and intact. Radial pulses are 2+ bilaterally. His Titi test is positive on the right. IMPRESSION: 1. Chester class III angina pectoris. 2. Coronary artery disease, [place] vessel. 3. Pure hypercholesterolemia. 4. Hypertension. 5. Suspect obstructive sleep apnea syndrome. 6. Morbid obesity. RECOMMENDATION: 1. The patient's story is very good for angina pectoris. He is already on a beta delmar with controlled heart rate. I would recommend coronary angiography, possible intervention, based on his classic symptoms. Risks, benefits, alternatives were described to the patient. Questions were answered for him with his daughter present. Informed consent was obtained. Again, this will be done by Dr. Posada this afternoon. 2. The patient needs an outpatient sleep study. DLB:MedQ [id number] D. 12/28/2013 T. 12/28/2013 CC: MD HORTENCIA PICHARDO MD [facility] ~ Dictated By: ALICIA SORIA MD 12/28/13 0906 Signed By: ALICIA SORIA MD 12/28/13 1500 ALICIA SORIA MD 12/28/13 1500 DISCHARGE SUMMARY December 29, 2013 2:59pm Dictated By: HORTENCIA POSADA MD Signed By: HORTENCIA POSADA MD [address] [place] [address] Patient: KATIANA PETERS UNIT/MR#: [id number] : 1950 Age: 63 Sex: M Report#: [id number] Room#: 360-A Location: [facility] Dictator: HORTENCIA POSADA MD Attn Phys: HORTENCIA POSADA MD Adm Date: 12/27/13 Disch Date: 12/29/13 ~DISCHARGE SUMMARY~ Signed DISCHARGE DIAGNOSES: 1. Progressive angina - acute or unstable angina. 2. Normal left ventricular contractility. 3. Hypertension. 4. Hyperlipidemia. 5. Probable obstructive sleep apnea, clinical diagnosis - has not undergone sleep study. 6. Obesity. CONSULTS: None. PROCEDURES: 1. Left heart catheterization via right radial artery with angioplasty and drug-eluting stent placement to the proximal and mid portion of the left anterior descending coronary artery. 2. Echocardiogram - normal left ventricular contractility. Ejection fraction greater than 55%. HOSPITAL COURSE: The patient was accepted in transfer from [facility]. The patient had symptoms suggestive of progressive angina. The patient also had symptoms suggestive of nocturnal dyspnea, probably due to obstructive sleep apnea. The patient underwent cardiac catheterization via the right radial artery approach. He tolerated this procedure quite well. High-grade stenosis in the proximal and mid portion of the LAD was identified, and a drug-eluting stent was placed, covering both of these areas. The patient did have reproduction of his prior discomfort with balloon inflation, which resolved with balloon deflation. The patient subsequently did well. He did have recurrent sensation of drowning or nightmare nocturnally with some choking, which occurs when he is sleeping on his back. His echocardiogram demonstrated normal LV contractility without significant segmental wall motion abnormalities and it does not appear that these symptoms are suggestive of congestive heart failure. Further the patient's left ventricular end- diastolic pressure was in the normal range on heart catheterization. It is my opinion that the patient would likely benefit from a sleep study. Since I am not a sleep physician and this would need to be done as an outpatient, I have asked the patient to contact his primary care physician, Dr. Hemphill to evaluate his nocturnal gasping. If Dr. Hemphill feels it is appropriate, he can order a sleep study with subsequent treatment as indicated. DISPOSITION: The patient is discharged to home. He is to follow up in my office in 3 months. He is to follow up with Dr. Hemphill this week for evaluation of sleep apnea and for a sleep study. MEDICATIONS: Aspirin 325 mg a day, clopidogrel 75 mg a day, Cardura 2 mg h.s., metoprolol 25 p.o. b.i.d., nitroglycerin sublingual p.r.n., and pravastatin 10 mg at h.s. PROGNOSIS: Good. Left ventricular function normal. DISCHARGE INSTRUCTIONS: The patient does not smoke, therefore smoking intervention is not required. All questions were answered to the patient's satisfaction. Followup needs possible sleep study per Dr. Hemphill. MTM:[employer] [id number] D. 12/29/2013 T. 12/30/2013 CC: MD ALICIA GÓMEZ MD JOHN D MOSIER, DO ~ Dictated By: HORTENCIA POSADA MD 12/29/13 1459 Signed By: HORTENCIA POSADA MD 01/07/14 1032 HORTENCIA POSADA MD 01/07/14 1032 History of Procedures Procedure List Visit/Account #[id number] (December 27, 2013 10:04pm - December 29, 2013 7:40pm ) Code/Procedure Date 00.40: PROCEDURE ON SINGLE VESSEL December 28, 2013 00.45: INSERTION OF ONE VASCULAR STENT December 28, 2013 00.66: PERCUTANEOUS TRANSLUMINAL CORONARY ANGIOPLASTY [PTCA] December 28, 2013 36.07: INSRT OF DRUG-ELUTING CORON ARTERY STENTS(S) December 28, 2013 37.22: LEFT HEART CARDIAC CATH December 28, 2013 88.56: CORONAR ARTERIOGR-2 CATH December 28, 2013
--- OUTSIDE RECORDS SUMMARY | 2017-02-16 05:11 | XMS REPORT | Continuity of Care Document ---
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 12/27/2014 MADL LOGISTICIAN, ARLENE L 434.90 CEREBRAL ARTERY OCCLUSION UNSPECIFIED WITHOUT CEREBRAL INFARCTION 12/27/2014 MADL LOGISTICIAN, ARLENE L V16.9 FAMILY HISTORY OF UNSPECIFIED MALIGNANT NEOPLASM 12/27/2014 MADL LOGISTICIAN, ARLENE L V18.0 FAMILY HISTORY OF DIABETES [...] MD Ot I25.10 ATHSCL HEART DISEASE OF [place] CORONARY 09/13/2015 LUIS ENRIQUE SOMMER MD Ot R07.9 CHEST PAIN, UNSPECIFIED 09/13/2015 LUIS ENRIQUE SOMMER MD Ot R94.39 ABNORMAL RESULT OF OTHER CARDIOVASCULAR 09/13/2015 LUIS ENRIQUE SOMMER MD Ot Z68.38 BODY MASS INDEX (BMI) 38.0-38.9, ADULT 09/13/2015 LUIS ENRIQUE SOMMER MD Ot Z79.899 OTHER ALF (CURRENT) DRUG THERAPY 09/13/2015 LUIS ENRIQUE SOMMER [...] FOR OTHER BACTER 07/31/2016 MADL, ARLENE L OIL LABORATORY ANALYST Ot K76.0 FATTY (CHANGE OF) LIVER, NOT ELSEWHERE C 07/31/2016 MADL, ARLENE L OIL LABORATORY ANALYST Ot R93.8 ABNORMAL FINDINGS ON DIAGNOSTIC IMAGING 08/02/2016 MADL, ARLENE L OIL LABORATORY ANALYST Ot K76.0 FATTY (CHANGE OF) LIVER, NOT ELSEWHERE C 08/02/2016 MADL, ARLENE L OIL LABORATORY ANALYST Ot R93.8 ABNORMAL FINDINGS ON DIAGNOSTIC IMAGING 08/20/2016 MADL, ARLENE L OIL LABORATORY ANALYST Ot K76.0 FATTY (CHANGE OF) LIVER, NOT ELSEWHERE C 08/20/2016 MADL, ARLENE L OIL LABORATORY ANALYST Ot R93.8 ABNORMAL FINDINGS ON DIAGNOSTIC IMAGING 08/21/2016 MADL, ARLENE L OIL LABORATORY ANALYST Ot K76.0 FATTY (CHANGE OF) LIVER, NOT ELSEWHERE C 08/21/2016 MADL, ARLENE L OIL LABORATORY ANALYST Ot R93.8 ABNORMAL FINDINGS ON DIAGNOSTIC IMAGING Procedures Code [place] [id number] ROUTINE VENIPUNCTURE 12/28/2014 56046 CMP 12/28/2014 76442 LIPID PANEL 12/28 [id number] GFR CALC (RESULT ONLY) 12/28/2014 87748 PSA TOTAL 2014 06383 TSH 12/28/2014 71683 BNP 12/29/2014 Results Test Result Range Complete [...] Status Pt. Type Provider Facility Loc./Unit Complaint [id number] 12/09/2014 15:56:49 12/09/2014 23: 59:59 CLS Outpatient Vern Camara
--- OUTSIDE RECORDS SUMMARY | 2017-02-16 12:29 | XMS REPORT | Continuity of Care Document ---
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 12/27/2014 MADL MAINTENANCE HELPER UTILITY ENGINEER, ARLENE L V16.9 FAMILY HISTORY OF UNSPECIFIED MALIGNANT NEOPLASM 12/27/2014 MADL MAINTENANCE HELPER UTILITY ENGINEER, ARLENE L V18.0 FAMILY HISTORY OF DIABETES [...] MD Ot I25.10 ATHSCL HEART DISEASE OF [place] CORONARY 09/13/2015 LUIS ENRIQUE SOMMER MD Ot R07.9 CHEST PAIN, UNSPECIFIED 09/13/2015 LUIS ENRIQUE SOMMER MD Ot R94.39 ABNORMAL RESULT OF OTHER CARDIOVASCULAR 09/13/2015 LUIS ENRIQUE SOMMER MD Ot Z68.38 BODY MASS INDEX (BMI) 38.0-38.9, ADULT 09/13/2015 LUIS ENRIQUE SOMMER MD Ot Z79.899 OTHER LONGTERM (CURRENT) DRUG THERAPY 09/13/2015 LUIS ENRIQUE SOMMER [...] FOR OTHER BACTER 07/31/2016 MADL, ARLENE L LEARNING SERVICES COORDINATOR Ot K76.0 FATTY (CHANGE OF) LIVER, NOT ELSEWHERE C 07/31/2016 MADL, ARLENE L LEARNING SERVICES COORDINATOR Ot R93.8 ABNORMAL FINDINGS ON DIAGNOSTIC IMAGING 08/02/2016 MADL, ARLENE L LEARNING SERVICES COORDINATOR Ot K76.0 FATTY (CHANGE OF) LIVER, NOT ELSEWHERE C 08/02/2016 MADL, ARLENE L LEARNING SERVICES COORDINATOR Ot R93.8 ABNORMAL FINDINGS ON DIAGNOSTIC IMAGING 08/20/2016 MADL, ARLENE L LEARNING SERVICES COORDINATOR Ot K76.0 FATTY (CHANGE OF) LIVER, NOT ELSEWHERE C 08/20/2016 MADL, ARLENE L LEARNING SERVICES COORDINATOR Ot R93.8 ABNORMAL FINDINGS ON DIAGNOSTIC IMAGING 08/21/2016 MADL, ARLENE L LEARNING SERVICES COORDINATOR Ot K76.0 FATTY (CHANGE OF) LIVER, NOT ELSEWHERE C 08/21/2016 MADL, ARLENE L LEARNING SERVICES COORDINATOR Ot R93.8 ABNORMAL FINDINGS ON DIAGNOSTIC IMAGING Procedures Code [place] [address] ROUTINE VENIPUNCTURE 12/28/2014 41725 CMP 12/28/2014 04076 LIPID PANEL 12/28 3093052 GFR CALC (RESULT ONLY) 12/28/2014 55623 PSA TOTAL 2014 63318 TSH 12/28/2014 29832 BNP 12/29/2014 Results Test Result Range Complete [...] Status Pt. Type Provider Facility Loc./Unit Complaint [id number] 12/09/2014 15:56:49 12/09/2014 23: 59:59 CLS Outpatient Vern Camara
== END 2017-02-14 09:20 | disposition home or self-care (01) ==
LOC: DELPENDDIS → ER 14:39 → SDC 16:10 → 4TH 16:10 → UNDOADMOB 16:10 → 4TH 16:10 → SDC 02-14 09:20 → UNDODISOB 02-14 09:20
PROVIDERS: ATTEND Surgery Pediatric Surgery
DX: K35.80 Unspecified acute appendicitis (principal); Z11.2 Encounter for screening for other bacterial diseases; I10 Essential (primary) hypertension; E78.00 Pure hypercholesterolemia, unspecified; Z86.73 Personal history of transient ischemic attack (TIA), and cerebral infarction without residual deficits; Z96.653 Presence of artificial knee joint, bilateral; Z87.891 Personal history of nicotine dependence
CPT/HCPCS: 36415; 74177; 80053; 81000; 85025; 87081; 88304; 94664; 96374

== ENCOUNTER 2018-11-03 07:06 | Outpatient (CLI) | payer MEDICARE ==
[~2018-11-03] VITALS: Ht 172.7 cm; Wt 114.8 kg
[~2018-11-03 07:06] MED LIST changes: +CIPR500T21 PO; +FLUT16SP22 NSEACH; +LISI1TAB10 PO; +LORA10TA7 PO; -METO-270 PO; +METO-387 PO; +OMEG-160 PO
[2018-11-03] MEDS ORDERED: OMEG100032 PO (10:22)
[2018-11-03] MEDS ORDERED: LISI1TAB10 PO (10:22)
[2018-11-03] MEDS ORDERED: ASPI-586 PO (10:22)
[2018-11-03] MEDS ORDERED: LOVA20TA2 PO (10:22)
[2018-11-03] MEDS ORDERED: METO-387 PO (10:22)
[2018-11-04] MEDS ORDERED: PANT40TA2 PO (11:26)
== END 2018-11-03 10:24 | disposition home or self-care (01) ==
LOC: PREOP 07:06
PROVIDERS: ATTEND Surgery
DX: Z01.818 Encounter for other preprocedural examination (principal)

== ENCOUNTER 2018-11-04 09:04 | Day surgery (SDC) | payer MEDICARE, OTHER ==
[~2018-11-04] VITALS: Ht 172.7 cm; Wt 114.8 kg
[~2018-11-04 09:04] MED LIST changes: +OMEG100032 PO
[2018-11-04] MEDS ORDERED: NS IV 500 ML 500 ML ONE (09:14)
[2018-11-04] MEDS ORDERED: MIDAZOLAM 2 MG/2 ML (VERSED) VIAL ONE ×4 (09:30)
[2018-11-04] MEDS ORDERED: fentaNYL INJECTION 100 MCG/2 ML AMP ONE (09:31)
[2018-11-04] MEDS ORDERED: HURRICAINE EXT TUBE (BENZOCAINE) ONE (09:31)
[2018-11-04] MEDS ORDERED: LIDOCAINE JELLY 2% 6 ML SYRINGE ONE (09:31)
[2018-11-04] MEDS ORDERED: NS IV 500 ML 500 ML IV PRN (09:44)
[2018-11-04] MEDS ORDERED: HURRICAINE EXT TUBE (BENZOCAINE) XX PRN (09:45)
[2018-11-04] MEDS ORDERED: fentaNYL INJECTION 100 MCG/2 ML AMP IVP ONE (09:45)
[2018-11-04] MEDS ORDERED: MIDAZOLAM 2 MG/2 ML (VERSED) VIAL IVP ONE (09:45)
[2018-11-04] MEDS ORDERED: LIDOCAINE JELLY 2% 6 ML SYRINGE MM PRN (09:45)
[2018-11-04 09:50] VITALS: BP 176/81
--- NOTE | 2018-11-04 10:31 | Conscious Sedation/ASA ---
Conscious Sedation Pre-Proced Time 10:00 ASA Score 2 For ASA 3 and 4: Consider anesthesia and medical clearance. Also, for patients with a history of failed moderate sedation consider anesthesia. Airway Lungs Heart ASA score ASA 1: a normal healthy patient ASA 2: a patient with a mild systemic disease (mid diabetes, controlled hypertension, obesity ASA 3: a patient with a severe systemic disease that limits activity (angina , COPD, prior Myocardial infarction) ASA 4: a patient with an incapacitating disease that is a constant threat to life (CHF, renal failure) ASA 5: a moribund patient not expected to survive 24 hrs. (ruptured aneurysm) ASA 6: a declared brain patient whose organs are being harvested. For emergent operations, add the letter E after the classification Mallampati Classification Grade 2 Sedation Plan Analgesia, Amnesia, Plan communicated to team members, Discussed options with patient/fam, Discussed risks with patient/fam The patient is an appropriate candidate to undergo the planned procedure, sedation, and anesthesia. The patient immediately re-assessed prior to indication. SARAH LARA MD Nov 04, 2018 10:31
--- NOTE | 2018-11-04 10:32 | Progress Note-Pre Operative ---
Pre-Operative Progress Note H&P Reviewed The H&P was reviewed, patient examined and no changes noted. Date Seen by Provider: Nov 04, 2018 Time Seen by Provider: 10:00 Date H&P Reviewed: Nov 04, 2018 Time H&P Reviewed: 10:00 Pre-Operative Diagnosis: GERD, family hx colon cancer SARAH LARA MD Nov 04, 2018 10:31
[2018-11-04] MEDS ORDERED: morphine INJ 10 MG/ML 1ML (SYR OR VIAL) IV PRN (10:45)
[2018-11-04] MEDS ORDERED: ONDANSETRON 4 MG/2 ML (SDV) Z0FRAN IV PRN (10:45)
[2018-11-04] MEDS ORDERED: HYDROcodone/APAP 5 MG/325 MG (LORTAB) TAB PO PRN (10:45)
[2018-11-04] MEDS ORDERED: ACETAMINOPHEN 325 MG TABLET PO PRN (10:45)
[2018-11-04 11:15] VITALS: BP 139/67
--- NOTE | 2018-11-04 11:25 | Progress Note-Post Operative ---
Post-Operative Progess Note Surgeon (s)/Mica Builder (s) Surgeon SARAH LARA MD Mica Builder: none Pre-Operative Diagnosis GERD, family hx colon cancer Post-Operative Diagnosis reflux esophagitis(stage2), small HH(2cm), moderate gastritis. chronic mild stage 2 ext and int hemorrhoids. Procedure & Operative Findings Date of Procedure 11/04/18 Procedure Performed/Findings EGD with bx. Colonoscopy. Anesthesia Type CS Estimated Blood Loss Estimated blood loss (mL): minimal Specimens/Packing Specimens Removed GE jxn, antrum SARAH LARA MD Nov 04, 2018 11:25
[2018-11-04] MEDS ORDERED: PANT40TA2 PO (11:26)
--- NOTE | 2018-11-04 11:27 | Discharge Inst-Surgical ---
D/C Lap Instructions-KIDO New, Converted, or Re-Newed RX: RX on Chart Follow Up 5 yrs or PRN Activity as tolerated High Fiber Diet 25g or more per day Avoid Alcohol, Caffeine, Spicy [place] and Acid foods. Drink 64 fluid oz or more of fluids per day. Symptoms to Report: Fever over 101 degree F, Nausea/Vomiting If any problems/questions: Contact your physician or go to Emergency Room SARAH LARA MD Nov 04, 2018 11:27
[2018-11-04 11:50] VITALS: BP 144/78
[2018-11-04 12:50] VITALS: BP 144/78
--- NOTE | 2018-11-04 16:46 | OPERATIVE REPORT ---
DATE OF SERVICE: 11/04/2018 ATTENDING PRIMARY CALCULATION REVIEWER: Magali Alberto APRN. PREOPERATIVE DIAGNOSES: Family history of colon cancer, gastroesophageal reflux disease. POSTOPERATIVE DIAGNOSES: Reflux esophagitis, stage II, small hiatal hernia approximately 2 cm in size, moderate severity gastritis with multiple small antral erosions, no formal ulcerations, chronic stage II external and internal hemorrhoids. Remainder of the rectum and colon were normal. PROCEDURE: EGD with biopsy, colonoscopy. SURGEON: Sarah Lara MD ANESTHESIA: Conscious sedation. ESTIMATED BLOOD LOSS: Minimal. FINDINGS: EGD, reflux esophagitis, stage II, small hiatal hernia approximately 2 cm in size. There was moderate severity gastritis focused more in the prepyloric region consistent with acid hypersecretion. There were multiple small erosions with no formal ulcerations or bleeding. The pylorus and duodenum appeared normal with no distal obstructions. Colonoscopy: Chronic stage II external and internal hemorrhoids, not actively edematous nor inflamed and no bleeding. Normal sphincter tone was felt and there were no palpable masses. Prostate gland was palpable and appeared normal. INDICATIONS: The patient is a 68-year-old male known to us. He was initially seen in 12/2015 for an incisional hernia, which was repaired with mesh on 01/11/2016. He was then seen in the Emergency Department on 01/2017 for appendicitis and underwent a laparoscopic appendectomy on 02/12/2018. He is in need of a screening colonoscopy; however, he has also had a history of gastroesophageal reflux disease, which has worsened. He reports that he does have multiple bowel movements daily. 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 He does have a family history of colon cancer with his father having the disease. He also has had epigastric burning sensation in the past and has undergone EGDs in the past as well. He reports in the last month, his symptoms have worsened. DESCRIPTION OF PROCEDURE: The patient was brought to the endoscopy suite, laid in the left lateral decubitus position. With the head slightly elevated. After adequate IV pain and sedating medications and conscious sedation anesthesia, the mouthpiece was applied. The endoscope was then placed in the mouth, visualizing the pharynx and hypopharyngeal region. Vocal cords, epiglottis and vallecula identified and appeared to be normal. The endoscope was then gently intubated at the esophageal opening and esophagus insufflated. The endoscope was then advanced to the first, second and third portion of the esophagus at the level of the GE junction, a reflux esophagitis stage II identified. There were no polyps or any neoplasms identified. There were no ulcers or strictures identified as well. A biopsy was taken with forceps with visualization of good hemostasis. The endoscope was then easily advanced in the stomach and endoscope retroflexed, visualizing a small hiatal hernia approximately 2 cm in size. This did appear to be symptomatic with multiple episodes of regurgitation of insufflated air throughout the mouth. There was a moderate severity gastritis noted more towards the stomach antrum with multiple small superficial erosions. There were no formal ulcerations. A biopsy was taken of one of these areas using forceps with visualization of good hemostasis. Endoscope was then advanced to the pylorus and the first and second portions of duodenum, which appeared normal with no distal obstructions. The endoscope was then slowly withdrawn while taking a second look and suctioning of residual air with no additional findings. The patient tolerated this portion of the procedure well. We will recommend the necessary lifestyle and diet accommodation including small and more frequent meals, avoidance of eating at night as well as head elevation while lying supine. He also needs to decrease amount of caffeinated beverage intake. We will also recommend some form of diet and exercise regimen for weight management, which would help with his acid hypersecretion as well as a reflux type of symptoms. We will also start him on Protonix 40 mg daily. Under the same anesthesia, we then proceeded with the colonoscopy portion of the procedure. A digital rectal examination was performed, which revealed chronic stage II external and internal hemorrhoids, not actively edematous nor inflamed and no bleeding. Normal sphincter tone was felt and there were no palpable masses. Prostate gland was palpable and appeared normal. The endoscope was then intubated to the anus and rectum gently insufflated. The endoscope was then advanced to the valves of [place] of the rectum with no polyps or any neoplasms identified. The endoscope was then advanced through the sigmoid colon where there were no diverticulosis identified. The endoscope was then advanced to the remainder of the descending, transverse and ascending colon to the cecum. These segments were normal. There were no polyps or any neoplasms identified throughout the colon or rectum. The endoscope was then slowly withdrawn while taking a second look and suctioning of residual air with no additional findings. The patient tolerated the procedure well. We will recommend continued medical management with a high fiber diet with at least 30 grams of fiber per day as well as copious amounts of water to promote soft stools on a daily basis. Due to his family history of colon cancer, we will recommend a followup colonoscopy in approximately 5 years. Job ID: [id number] DocumentID: [id number] Dictated Date: 11/04/2018 11:24:47 Drilling Engineering Manager Date: 11/04/2018 16:45:59 Dictated By: SARAH LARA MD [facility]
== END 2018-11-04 12:10 | disposition home or self-care (01) ==
LOC: ENDO 09:04
PROVIDERS: ATTEND Surgery
DX: Z12.11 Encounter for screening for malignant neoplasm of colon (principal); Z80.0 Family history of malignant neoplasm of digestive organs; K21.0 Gastro-esophageal reflux disease with esophagitis; K44.9 Diaphragmatic hernia without obstruction or gangrene; K29.70 Gastritis, unspecified, without bleeding; K25.9 Gastric ulcer, unspecified as acute or chronic, without hemorrhage or perforation; K64.1 Second degree hemorrhoids; I10 Essential (primary) hypertension; E78.5 Hyperlipidemia, unspecified; Z86.73 Personal history of transient ischemic attack (TIA), and cerebral infarction without residual deficits; H54.8 Legal blindness, as defined in USA; Z89.9 Acquired absence of limb, unspecified; Z79.82 Long term (current) use of aspirin; Z96.653 Presence of artificial knee joint, bilateral; Z96.643 Presence of artificial hip joint, bilateral; Z87.891 Personal history of nicotine dependence
CPT/HCPCS: 43239; G0105; 88305

== ENCOUNTER → 2021-06-05 | Outpatient (CLI) | payer MEDICARE, OTHER ==
[~2021-06-05] MED LIST changes: -LISI1TAB10 PO; +LISI1TAB26 PO; +LISI1TAB29 PO; +LISI1TAB46 PO; -LISI1TAB6 PO; -LISI1TAB8 PO; -METO-387 PO; +MTP25TSR PO; +PANT40TA2 PO
--- NOTE | 2021-06-05 08:49 | Diagnostic Imaging Report ---
INDICATION: Adult fractures, screening for osteoporosis. COMPARISON: None available FINDINGS: AP Spine L1-L4: [BMD (g/cm2): 1.285] [T-Score: 0.4] [Z-Score: 0.2] [BMD Previous: NA] [BMD % Change: NA] LT Hip Neck: [BMD (g/cm2): NA] [T-Score: NA] [Z-Score: NA] LT Hip Total: [BMD (g/cm2):NA] [T-Score:NA] [Z-Score: NA] [BMD Previous: NA] [BMD % Change: NA] RT Hip Neck: [BMD (g/cm2):NA] [T-Score:NA] [Z-Score:NA] RT Hip Total: [BMD (g/cm2):NA] [T-score:NA] [Z-Score:NA] [BMD Previous:NA] [BMD % Change:NA] Left forearm: Radius 33% BMD: 0.891, T score -1.1 *Indicates significant change from prior examination based on 95% confidence level. World Health Organization criteria for BMD interpretation classify patients as Normal (T-score at or above -1.0), Osteopenic (T-score between -1.0 and -2.5) or Osteoporotic (T-score at or below -2.5). LIMITATIONS AND MODIFICATION: The bilateral hips were not evaluated secondary to postsurgical changes. FRACTURE RISK (FRAX SCORE): FRAX score is not calculated given bilateral postsurgical changes within the hips. IMPRESSION: 1. Osteopenia (Low bone mass). 2. Baseline examination. 3. See below National Osteoporosis Foundation guidelines on when to potentially initiate pharmacologic therapy. Based on the National Osteoporosis Foundation Guidelines, pharmacologic treatment should be initiated in any of the following, unless clinical conditions suggest otherwise: * Any patient with prior fragility fracture of the hip or vertebrae. A spine fracture indicates 5X risk for subsequent spine fracture and 2X risk for subsequent hip fracture. * Osteoporosis (T-score <-2.5). * Postmenopausal women and men age 50 and older with low bone mass/osteopenia (T-score between -1.0 and -2.5) by DXA and 10-year major osteoporotic fracture greater than 20% or a 10-year probability of hip fracture greater than 3%. These fracture risks are supplied above in the FRAX score, if applicable. * Clinician judgement and/or patient preferences may indicate treatment for people with 10-year fracture probabilities above or below these levels. Dictated by: Dictated on workstation # [id number]
--- NOTE | 2021-06-05 09:48 | Diagnostic Imaging Report ---
INDICATION: Screening for abdominal aneurysm FINDINGS: Abdominal aorta is normal in caliber. The vessel showing normal distal tapering. The iliac arteries are obscured from visualization by shadowing bowel gas. Distal aorta measures 2.0 cm in diameter. The proximal aorta 2.6 cm. IMPRESSION: No evidence of abdominal aortic aneurysm. Dictated by: Dictated on workstation # [id number]
== END ==
LOC: RAD 08:00
PROVIDERS: ATTEND Internal Medicine
DX: Z13.820 Encounter for screening for osteoporosis (principal); Z13.6 Encounter for screening for cardiovascular disorders; M85.80 Other specified disorders of bone density and structure, unspecified site
CPT/HCPCS: 76775; 77080

== ENCOUNTER → 2022-09-19 | Outpatient (CLI) | payer MEDICARE, OTHER ==
[~2022-09-19] MED LIST changes: -LISI1TAB26 PO; -LISI1TAB29 PO; +LISI1TAB44 PO; +LISI1TAB48 PO
== END ==
LOC: CARD 07:37
PROVIDERS: ATTEND Internal Medicine Cardiovascular Disease
DX: I11.9 Hypertensive heart disease without heart failure (principal)
CPT/HCPCS: 93306

== ENCOUNTER → 2022-09-25 | Outpatient (CLI) | payer MEDICARE, OTHER ==
[~2022-09-25] MED LIST changes: +REGADENOSON 0.4 MG/5 ML SYR (LEXISCAN) IV ONE
[2022-09-25] MEDS: CATHETER FLUSH 10 ML SYR IVP PRN ×2 (12:08→13:16)
[2022-09-25 13:15] VITALS: BP 157/88
--- NOTE | 2022-09-25 14:57 | Cardiology Stress Test Report ---
Stress Test Report Date of Procedure/Referring: Date of Procedure: Sep 25, 2022 PCP Eloisa Mauro DO Admitting Physician Admitting Physician: Attending Physician: Luis Enrique Díaz MD Baseline Heart Rate: 57 Baseline Blood Pressure: Blood Pressure Systolic: 157 Blood Pressure Diastolic: 88 Baseline Vitals Vital Signs Date Time Temp Pulse Resp B/P (MAP) Pulse Ox O2 Delivery O2 Flow Rate FiO2 09/25/22 13:15 57 20 157/88 (111) Baseline EKG: Baseline EKG: NSR Summary After explaining the procedure to the patient, he signed a consent and then brought to the stress nuclear laboratory. Patient received 0.4 mg Lexiscan for stress test, ECG, heart rate and blood pressure were monitored continuously. Resting and stress dose of radio tracer were injected, imaging was acquired and reviewed in short axis, horizontal long axis and vertical long axis views. TID: 1.09 SSS: 5 SDS: 2 EF: 58 1. Patient tolerated Lexiscan well 2. Diaphragmatic attenuation with mild decrease uptake involving the mid to apical inferior wall and inferolateral wall with mild reversibility 3. Normal left ventricular size, ejection fraction 58% Copy Copies To 1: [facility] [place] ENRIQUE DÍAZ MD Sep 25, 2022 14:57
== END ==
LOC: CARD 11:44
PROVIDERS: ATTEND Internal Medicine Cardiovascular Disease
DX: I10 Essential (primary) hypertension (principal)
CPT/HCPCS: 78452; 93017; A9502